=== PATIENT | female | born 1990 | race Caucasian/White ===

== ENCOUNTER 2020-04-06 08:49 | Outpatient (CLI) | payer OTHER, SELFPAY ==
--- NOTE | ~2020-04-06 | US_ITS ---
EXAMINATION: US pelvic complete w TV EXAM DATE: 04/06/2020 10:33 INDICATION: Abnormal uterine bleeding. TECHNIQUE: Pelvic transabdominal and transvaginal sonogram was performed. There are multiple graysca le and Doppler images available for interpretation. There is no prior study for comparison. FINDINGS: Uterus measures 9.8 x 4.9 x 4.9 cm, is anteverted with possible 2 cm fibroid anterior lowe r uterine segment. Endometrial stripe measures 7 mm, within normal limits. There is a nabothian cyst . There is no free pelvic fluid. Right adnexa: The ovary measures 2.8 x 2.9 x 2.2 cm and is morphologically normal. Ovarian vascular f low confirmed. Left adnexa: The ovary measures 3.4 x 1.8 x 1.9 cm and is morphologically normal. Ovarian vascular fl ow confirmed. IMPRESSION: 1. Possible small fibroid. Reviewed, dictated and finalized at location A. RIGGER IMPRESSION: 1. Possible small fibroid.
== END 2020-04-06 08:50 | disposition home or self-care (01) ==
PROVIDERS: PCP Physician Assistant; Visit Provider Obstetrics & Gynecology
DX: N93.9 Abnormal uterine and vaginal bleeding, unspecified (principal)
CPT/HCPCS: 76830; 76856

== ENCOUNTER 2020-11-03 16:42 | Emergency (ER) | payer OTHER, SELFPAY ==
--- NOTE | ~2020-11-03 | XR_ITS ---
EXAMINATION: XR hand LT min 3V DATE: 11/03/2020 16:55 INDICATION: Left hand pain. TECHNIQUE: 3 views of left hand were obtained. COMPARISON: None. FINDINGS: Bone alignment is normal. No fracture. Joint spaces are well maintained. IMPRESSION: 1. Normal left hand. Reviewed, dictated and finalized at location A. IMPRESSION: 1. Normal left hand.
[2020-11-03 16:43] VITALS: BP 148/91; PULSE 101; RESP 18; TEMP 36.8; O2SAT 100
--- NOTE | 2020-11-03 17:52 | ED.UPPEXIN ---
HPI - Extremity Injury (Upper) General Chief Complaint: Extremity Injury, Upper Stated Complaint: hand pain Time Seen by Provider: 11/03/20 17:27 Source: patient Mode of arrival: ambulatory Limitations: no limitations History of Present Illness HPI narrative: This is a 30 year old female that presents to the ER for left first finger pain present x 2 weeks. Reports no known injury. Reports the thumb feels stiff in the morning. The pain is constant and sharp. Pain started to worsen which prompted her to be seen. Denies fever, erythema, edema or warmth. Related Data Allergies Allergy/AdvReac Type Severity Reaction Status Date / Time No Known Allergies Allergy Unknown Unverified 12/23/18 20:03 No Known Allergies Allergy Uncoded 12/23/18 20:03 Review of Systems Review of Systems: CONSTITUTIONAL: Denies fever SKIN: Denies rash MUSCULOSKELETAL: Reports joint pain, and myalgia. NEUROLOGIC: Denies numbness All systems reviewed & are unremarkable except as noted in HPI and below PMFSH Past Medical History Medical History (Updated 11/03/20 @ 18:03 by Mai Cain PA-C) No active medical problems Surgical History Surgical History (Updated 11/03/20 @ 17:58 by Mai Cain PA-C) History of tubal ligation Social History Social History (Updated 11/03/20 @ 17:58 by Mai Cain PA-C) Gender identity (if verbalized by the patient): Female Exam Narrative: GENERAL: Well-appearing, well-nourished, and in no acute distress. HEAD: Normocephalic, atraumatic. EYES: EOMI. EXTREMITIES: Normal range of motion. No edema, erythema, warmth or obvious deformity. Normal radial pulses. Normal sensation SKIN: Warm, dry, no rash. NEURO: No focal deficits. Alert and oriented x3. PSYCH: Normal mood and affect Course Vital Signs Vital signs: Vital Signs Temperature 98.3 F 11/03/20 16:43 Pulse Rate 101 H 11/03/20 16:43 Respiratory Rate 18 11/03/20 16:43 Blood Pressure 148/91 H 11/03/20 16:43 Pulse Oximetry 100 11/03/20 16:43 Temperature 98.3 F 11/03/20 16:43 Pulse Rate 101 H 11/03/20 16:43 Respiratory Rate 18 11/03/20 16:43 Blood Pressure 148/91 H 11/03/20 16:43 Pulse Oximetry 100 11/03/20 16:43 MDM - Extremity Injury (Upper) MDM Narrative Medical decision making narrative: Patient presents to the emergency department for left first finger pain. No known injury or trauma. Patient is neurovascularly intact. No erythema, edema, or warmth of the hand. Left hand x-ray is normal. Patient instructed to rest, ice and take [id number] pain medication as needed. She will be given hand surgery if needed for follow-up. She was given warnings to return to the ER Imaging Data Radiologist's impression: ITS Impressions Hand X-Ray 11/03/20 16:59 IMPRESSION: 1. Normal left hand. Critical Care Time Critical Care Time Critical Care Time: No Discharge Plan Discharge Clinical Impression: Pain of left thumb Patient Disposition: Home, Self-Care Condition: Stable Instructions: Finger Sprain (ED) Additional Instructions: Return to the emergency department if you experience fever, redness and swelling of your hand, numbness, or any other symptoms that are concerning to you Rest. Elevate. Ice the area. You may wear your splint as needed for comfort. Tylenol or ibuprofen as needed If symptoms persist follow-up with hand surgery. Call to make an appointment Follow-up/Referrals: Azam,LANDY Burris [Primary Care Provider] - Garett Good MD [Physician] - 1 Week
[2020-11-03] MEDS: KETOROLAC (*BKC) 60 MG/2 ML VIAL IM (18:20)
[2020-11-03 18:36] VITALS: BP 109/76; PULSE 64; RESP 18; TEMP 36.6; O2SAT 100
== END 2020-11-03 18:36 | disposition home or self-care (01) ==
PROVIDERS: Emergency Provider Emergency Medicine; PCP Physician Assistant
DX: M79.645 Pain in left finger(s) (principal)
CPT/HCPCS: 29130; 73130; 96372; 99283; J1885

== ENCOUNTER 2022-07-21 17:12 | Emergency (ER) | payer OTHER, SELFPAY ==
[2022-07-21 17:37] VITALS: BP 123/72; PULSE 97; RESP 18; TEMP 36.9; O2SAT 100
--- NOTE | 2022-07-21 19:46 | ED.SKABFB ---
HPI - Skin/Abscess/Foreign Bdy General Chief complaint: Skin/Abscess/Foreign Body Stated complaint: abscess left cheek? Time Seen by Provider: 07/21/22 19:32 Source: patient and RN notes reviewed Mode of arrival: ambulatory Limitations: no limitations History of Present Illness HPI narrative: This is a 32 year old female who presents for evaluation of left cheek wound. PAtient noticed yesterday that she had sore to her left cheek and she noticed today surrounding swelling. She denies history of MRSA or abscess. She denies nausea, vomiting, fever or chills. Related Data Allergies Allergy/AdvReac Type Severity Reaction Status Date / Time No Known Allergies Allergy Unknown Unverified 07/21/22 19:48 No Known Allergies Allergy Unknown Other Uncoded 07/21/22 19:48 Review of Systems Constitutional: Constitutional: Denies chills, Denies fatigue and Denies fever(s) Eyes: Eyes: Denies change in vision Respiratory: Respiratory: Denies cough PMFSH Past Medical History Medical History No active medical problems Surgical History Surgical History History of tubal ligation Social History Social History (Updated 07/21/22 @ 19:48 by Kasey Elizondo MD) Smoking status: Current every day smoker Gender identity (if verbalized by the patient): Female Exam Const: General: no acute distress and alert Nutritional Appearance: well nourished Orientation/consciousness: patient oriented x3 Limitations: no limitations HENMT: Head: normal to inspection Mouth: Yes Normal oral and palatal mucosa present, Yes lip normal and Yes moist mucous membranes Teeth and gingiva: dentition normal Throat: posterior oropharynx normal and uvula midline Eyes: EOM: EOMs intact bilaterally Resp: Effort & Inspection: normal respiratory effort Skin: Other: left cheek with wound with surrounding swelling, no fluctuance, mild erythema Neuro: General: patient oriented x3 and moves all extremities Cranial nerves: Yes Nystagmus not present Speech: normal speech Gait exam (Neuro): Normal gait present Extrem: General: normal to inspection Psych: Mental Status: mental status grossly normal Affect: normal affect Attitude: cooperative Course Reevaluation(s) Reevaluation #1: I Discussed with patient treatment with antibiotics. she does not appear to have fluctuance at this time to get I and D Date: 07/21/22 Time: 19:49 Vital Signs Vital signs: Vital Signs Temperature 98.4 F 07/21/22 17:37 Pulse Rate 97 07/21/22 17:37 Respiratory Rate 18 07/21/22 17:37 Blood Pressure 123/72 07/21/22 17:37 Pulse Oximetry 100 07/21/22 17:37 Oxygen Delivery Room Air 07/21/22 17:37 Temperature 98.4 F 07/21/22 17:37 Pulse Rate 97 07/21/22 17:37 Respiratory Rate 18 07/21/22 17:37 Blood Pressure 123/72 07/21/22 17:37 Pulse Oximetry 100 07/21/22 17:37 Oxygen Delivery Room Air 07/21/22 17:37 Discharge Plan Discharge Clinical Impression: Folliculitis Patient Disposition: Home, Self-Care Condition: Stable Instructions: Antibiotic Form, Acne (ED), Folliculitis (ED) Additional Instructions: Take ibuprofen for your pain. Apply warm compresses 3 to 4 times a day. Take antibiotics as prescribed. and apply antibiotics ointment. Prescriptions: New mupirocin 2 % ointment 1 applic topical TID Qty: 22 0RF doxycycline monohydrate 100 mg capsule 100 mg PO BID Qty: 14 0RF Follow-up/Referrals: Azam,LANDY Burris [Primary Care Provider] -
[2022-07-21] MEDS: CEPHALEXIN 500 MG CAPSULE PO (19:48)
== END 2022-07-21 20:37 | disposition home or self-care (01) ==
PROVIDERS: Emergency Provider General Practice; PCP Physician Assistant
DX: L73.9 Follicular disorder, unspecified (principal); F17.200 Nicotine dependence, unspecified, uncomplicated
CPT/HCPCS: 99283; A9270

== ENCOUNTER 2022-12-09 13:42 | Emergency (ER) | payer OTHER, SELFPAY ==
--- NOTE | ~2022-12-09 | XR_ITS ---
XR foot RT min 3V 12/09/2022 14:08 INDICATION: Right foot pain PROCEDURE: 4 views right foot COMPARISON: 12/09/2022 FINDINGS: Fracture, dislocation or subluxation is not identified. Lisfranc joint intact. There are sc rews in the calcaneus. Lisfranc joint intact. The soft tissues appear within normal limits. No forei gn bodies are identified. IMPRESSION: 1: NO ACUTE BONE OR JOINT ABNORMALITY IDENTIFIED. Reviewed, dictated and finalized at location B.
--- NOTE | ~2022-12-09 | US_ITS ---
EXAMINATION: US venous doppler LE RT DATE: 12/09/2022 15:26 INDICATION: Right lower limb pain TECHNIQUE: Grayscale ultrasound images without and with compression and Doppler ultrasound images of the right lower extremity veins were obtained. COMPARISON: None. FINDINGS: The visualized portions of right common femoral vein, profunda (deep) femoral vein, femoral vein, pop liteal vein, peroneal trunk, posterior tibial veins, peroneal veins, gastrocnemius vein and greater s aphenous vein outflow are patent. IMPRESSION: 1. No deep venous thrombosis in the right lower limb. Reviewed, dictated and finalized at location A.
--- NOTE | ~2022-12-09 | XR_ITS ---
XR heel RT min 2V 12/09/2022 14:08 INDICATION: Foot pain after fall PROCEDURE: 2 views right os calcis COMPARISON: 12/09/2022 FINDINGS: Fracture, dislocation or subluxation is not identified. There are screws transfixing the po sterior margin of the calcaneus. The soft tissues appear within normal limits. No foreign bodies are identified. IMPRESSION: 1: NO ACUTE BONE OR JOINT ABNORMALITY IDENTIFIED. Reviewed, dictated and finalized at location B.
[2022-12-09 13:45] VITALS: BP 128/77; PULSE 84; RESP 16; TEMP 36.8; O2SAT 98
--- NOTE | 2022-12-09 14:44 | ED.LOWEXIN ---
HPI - Extremity Injury (Lower) General Chief Complaint: Extremity Injury, Lower Stated Complaint: sx on R heel yesterday, fell on heel today Time Seen by Provider: 12/09/22 14:24 History of Present Illness HPI Narrative: 32-year-old female presents to the emergency room for evaluation of right ankle and foot pain status post fall. Patient states yesterday she had a bone spur removed from her Achilles tendon per Dr. Ron Leslie at [facility]. Patient states earlier today her daughter was joking around with her and tripped her while she was using her crutches. Patient states increased pain to her right ankle foot. Lower extremity has been placed in a walking boot prior to arrival. Patient consulted with her orthopedist and was told to come to the closest emergency room for further evaluation. Related Data Allergies Allergy/AdvReac Type Severity Reaction Status Date / Time No Known Allergies Allergy Unknown Unverified 07/21/22 19:48 No Known Allergies Allergy Unknown Other Uncoded 07/21/22 19:48 Review of Systems Review of Systems: CONSTITUTIONAL: Denies fever, chills, or sweats. EYES: Denies visual changes, redness, or discharge. ENT: Denies rhinorrhea, congestion, sore throat, or otalgia. CARDIOVASCULAR: Denies chest pain, palpitations, or edema. RESPIRATORY: Denies cough or dyspnea. GASTROINTESTINAL: Denies abdominal pain, nausea, vomiting, or diarrhea. GENITOURINARY: Denies dysuria or hematuria. SKIN: Denies rash or itching. MUSCULOSKELETAL: Reports right foot and ankle pain NEUROLOGIC: Denies headache, numbness, dizziness, or weakness. PSYCHIATRIC: Denies anxiety or depression. PMFSH Past Medical History Medical History No active medical problems Surgical History Surgical History History of tubal ligation Social History Social History Smoking status: Current every day smoker Gender identity (if verbalized by the patient): Female Exam Narrative: GENERAL: Well-appearing, well-nourished, no physical limitations, and in no acute distress. HEAD: Normocephalic, atraumatic. EYES: Conjunctivae normal, PERRLA and EOMI. CHEST: Clear to auscultation. No respiratory distress. No wheezes rales or rhonchi. HEART: Regular rate and rhythm. No murmur heard. Normal peripheral pulses. EXTREMITIES: Rt foot: Patient's foot removed from walking boot, Iban bandage intact. Tenderness along the Achilles. No obvious bony abnormality noted. Neurovascular is intact distally. Limited range of motion due to pain. Negative Crooks test. Distal pulses present. SKIN: Warm, dry, no rash. No noted wounds NEURO: No focal deficits. Alert and oriented x3. MAEW. CN's II-XI intact bilaterally, normal gait PSYCH: Cooperative. Normal mood and affect. Course Vital Signs Vital signs: Vital Signs Temperature 36.8 C 12/09/22 13:45 Pulse Rate 84 12/09/22 13:45 Respiratory Rate 16 12/09/22 13:45 Blood Pressure 128/77 12/09/22 13:45 Pulse Oximetry 98 12/09/22 13:45 Temperature 36.8 C 12/09/22 13:45 Pulse Rate 84 12/09/22 13:45 Respiratory Rate 16 12/09/22 13:45 Blood Pressure 128/77 12/09/22 13:45 Pulse Oximetry 98 12/09/22 13:45 MDM - Extremity Injury (Lower) MDM Narrative Medical decision making narrative: 32-year-old female who recently had a bone spur removed from her right Achilles yesterday at [facility] presented to the emergency room for evaluation of foot and ankle pain radiate up into her calf muscle following a fall today. Imaging shows no acute bony abnormality. Discussed case with Dr. Leslie, the tempering machine operator who performed her procedure yesterday he requested a lower extremity ultrasound to rule out a DVT. Lower extremity ultrasound was negative for DVT. Patient had a negative Crooks test. Discussed franchesca
== END 2022-12-09 16:31 | disposition home or self-care (01) ==
PROVIDERS: Emergency Provider Nurse Practitioner Family; PCP Internal Medicine
DX: S99.911A Unspecified injury of right ankle, initial encounter (principal); S99.921A Unspecified injury of right foot, initial encounter; F17.200 Nicotine dependence, unspecified, uncomplicated; Z98.890 Other specified postprocedural states; W01.0XXA Fall on same level from slipping, tripping and stumbling without subsequent striking against object, initial encounter
CPT/HCPCS: 73630; 73650; 93971; 99284

== ENCOUNTER 2024-08-12 20:51 | Emergency (ER) | payer OTHER, SELFPAY ==
--- NOTE | ~2024-08-12 | CT_ITS ---
EXAMINATION: CT soft tissue neck w con DATE: 08/13/2024 00:13 INDICATION: Left peritonsillar abscess. TECHNIQUE: Computed tomography (CT) of the neck was performed with 75 mL Omnipaque-350 intravenous co ntrast. Automated exposure control and iterative reconstruction technique were employed. The dose-yuri gth product was 416.76 mGy-cm. COMPARISON: None FINDINGS: There is a 2.5 x 2.4 x 1.5 cm peripherally enhancing left peritonsillar abscess. This narrows the sumanth pharynx deviates the uvula to the right. Left-sided predominant likely reactive bilateral jugular ujdith in lymphadenopathy, the largest left-sided level 2 jugular chain lymph nodes measuring up to 11 mm ma ximal short axis diameter. Visualized apices of lungs are clear. Thyroid gland and the bilateral paro tid and submandibular glands are normal. Moderate cervical spondylosis with likely positional reversa l of the normal cervical lordosis. IMPRESSION: 1. 2.5 x 2.4 x 1.5 cm left peritonsillar abscess with likely reactive subarticular bilateral jugular chain lymphadenopathy. Reviewed, dictated and finalized at location A. IMPRESSION: 1. 2.5 x 2.4 x 1.5 cm left peritonsillar abscess with likely reactive subarticu lar bilateral jugular chain lymphadenopathy.
[2024-08-12 20:53] VITALS: BP 101/78; PULSE 109; RESP 20; TEMP 36.5; O2SAT 97
--- OUTSIDE RECORDS SUMMARY | 2024-08-12 20:53 | XMS_ITS | Data Portability ---
Author Organization [employer], Main Office Address [address] [place] [address] Assessment No assessment recorded. Plan of Treatment Reminders Order Date Submit Date Provider Last Modified By Organization Details Last Modified Time Details Appointments None recorded. Lab None recorded. Referral None recorded. Procedures None recorded. Surgeries None recorded. Imaging CT, neck, soft tissue, w/o contrast - PLEASE DISREGARD ORDER OF CT NECK W/ CONTRAST. DR MARTINEZ WOULD LIKE THIS DONE WITHOUT CONTRAST. 2024 [facility], [address], [place] [address], [place], [address], 16:50:30 Medication Orders clindamyci n HCl 300 mg capsule 2024 [facility] [employer] #[id number], [address] [place], [place], [id number], 16:35:25 Medrol (Benny) 4 mg tablets in a dose pack 2024 [facility] [employer] #[id number] [place], [place], [id number], 16:35:27 Patient TargetsNo targets recorded. Patient InstructionsNo instructions recorded. Reason for Referral None Reported. Problems Name Problem SNOMED Code Status Onset Date Resolution Date Notes Provider Name and Address Organization Details Recorded Time Peritonsillar abscess 63768753 Active 2024 Phyllis Coombs RN null, [employer] 16:33:03 Problem Notes None recorded. Medical Equipment None Reported. Allergies No known drug allergies Medications Name Sig Start Date Stop Date Status Note LastModified by Organization Details LastModified Time amoxicillin 500 mg capsule TAKE 1 CAPSULE BY MOUTH TWICE DAILY FOR 10 DAYS active Not Available Not Available No t Available clindamycin HCl 300 mg capsule Take 1 capsule every 6 hours by oral route. 025 active Not Available Not Available Not Avai lable Medrol (Benny) 4 mg tablets in a dose pack Take 1 dose pk by oral route. 025 active Not Available Not Available Not Avai lable ibuprofen active Not Available Not Aniyah ilable Not Available Vitals Date Recorded Body weight Body mass index (BMI) Body height Body temperature Provider Name and Address Organization Details Last Updated DateTime 08/10/2024 36949.74 g 35.1 kg/m2 157.48 cm 97.8 [degF] Phyllis Coombs RN [facility] [employer] [facility] 08/10/2024 16:20:58 Social History None recorded. Functional Status None recorded. Mental Status None recorded. Family History Nothing Reported Notes:NO ENT Medical History Condition Response NO SIGNIFICANT PAST MEDICAL HISTORY Y Gynecological HistoryNo gynecological history recorded. Obstetrics History GPAL:G 0 P 0 0 0 0 Past Encounters Encounter ID Performer Location Encounter Start Date Encounter Closed Date Diagnosis/Indication Diagnosis SNOMED-CT Code Diagnosis ICD10 Code Diagnosis Note [id number] Stoney Martinez MD [facility] [place] [address] [place] [address] 08/10/2024 16:14:24 08/11/2024 11:58:07 Peritonsillar abscess 94612192 J36 Health Concerns Section Related Observation LastModified by Organization Detai ls LastModified Time None Recorded Concern Status LastModified by Organization Details LastModified Time None Recorded Advance Directives Directive None Recorded Payers Encounter Date Sequence Insurance Name Policy Number Policy Leon Covered Member ID Leon Member ID Guarantor Name 08/10/[address] [facility] Ankita Robledo [id number] Ankita Robledo Notes Date Note Type Note Provider Name and Address Organization Details Recorded Time 08/10/2024 text/html this patient developed left tonsil swelling 4 days ago. She was given amoxicillin and a Medrol Dosepak reports that this has been minimally effective. Stoney Martinez MD [address] [place] [address], [facility] [address], [place], [address], [facility] 08/10/2024 16:35:40 OBGyn Episode No OBEpisode recorded.
--- NOTE | 2024-08-12 21:27 | PC.NURSE ---
Patient complaining of increased difficulty breathing. VS reassessed, patient appears to have more difficulty swallowing her secretions. Will speak with charge account authorizer regarding room placement
[2024-08-12 22:06] VITALS: BP 123/92; PULSE 94; O2SAT 100
--- NOTE | 2024-08-12 22:27 | ED.GENADULT ---
HPI - General Adult General Chief complaint: Unspecified <Danita Cuevas PA-C - Last Filed: 08/16/24 14:51> Stated complaint: Swollen tonsils/diff swallowing/breathing <Danita Cuevas PA-C - Last Filed: 08/16/24 14:51> Time Seen by Provider: 08/12/24 22:16 <Danita Cuevas PA-C - Last Filed: 08/16/24 14:51> History of Present Illness HPI narrative: 34-year-old female with no past medical history presents to the ED with family at bedside for for left throat pain and swelling to the past 5 days. Patient states 4 days ago she went to urgent care was prescribed a Medrol Dosepak and amoxicillin. She tested negative for strep and mono. She was given follow-up for ENT. States her symptoms were continuing to worsen despite compliance with medications so she went to ENT, Dr. Butler at [facility] on 2 days ago. Patient states the ENT was concerned for a peritonsillar abscess, attempted to drain the abscess in office without success. The patient was advised to discontinue the amoxicillin was started on clindamycin which she has been taking as prescribed. She states she was scheduled for outpatient CT scan this upcoming Wednesday. She states over the past 24 hours her symptoms have progressively worsened she has had increased swelling and pain to the left side of her throat. She reports significant pain with swallowing however she is able to swallow. Denies difficulty breathing. Reports associated nausea, no vomiting. <Danita Cuevas PA-C - Last Filed: 08/16/24 14:51> Related Data Allergies/adverse reactions: Allergies Allergy/AdvReac Type Severity Reaction Status Date / Time No Known Allergies Allergy Unknown Unverified 08/12/24 20:52 No Known Allergies Allergy Unknown Other Uncoded 08/12/24 20:52 <Danita Cuevas PA-C - Last Filed: 08/16/24 14:51> Review of Systems Review of Systems: All systems reviewed & are unremarkable except as noted in HPI and below <DANILO Gunter Last Filed: 08/16/24 14:51> PMFSH Past Medical History Medical History: Medical History No active medical problems <Danita Cuevas PA-C - Last Filed: 08/16/24 14:51> Surgical History Surgical History: Surgical History History of tubal ligation <Danita Cuevas PA-C - Last Filed: 08/16/24 14:51> Social History Social History: Social History Smoking status: Current every day smoker Gender identity (if verbalized by the patient): Female <Danita Cuevas PA-C - Last Filed: 08/16/24 14:51> Exam Narrative: GENERAL: Well-appearing, well-nourished, and in no acute distress. HEAD: Normocephalic, atraumatic. EYES: PERRLA and EOMI. ENT: Nares clear, no rhinorrhea or epistaxis. Mucous membranes moist. Enlarged left palatine tonsil with uvular deviation and overlying erythema. No exudates. No trismus. Patient is spitting his secretions into emesis bag, however is able to swallow on command. Hot potato voice appreciated on exam. She is speaking in full sentences. Airway intact NECK: Supple. CHEST: Clear to auscultation. No respiratory distress. HEART: Regular rate and rhythm. No murmur heard. Normal peripheral pulses. ABDOMEN: Soft, nontender, nondistended, normal active bowel sounds. EXTREMITIES: Normal range of motion. No edema. SKIN: Warm, dry, no rash. NEURO: No focal deficits. Alert and oriented x3 <Danita Cuevas PA-C - Last Filed: 08/16/24 14:51> Course Vital Signs Vital signs: Vital Signs Temperature 97.7 F 08/12/24 20:53 Pulse Rate 109 H 08/12/24 20:53 Respiratory Rate 20 08/12/24 20:53 Blood Pressure 101/78 08/12/24 20:53 Pulse Oximetry 97 08/12/24 20:53 Oxygen Delivery Room Air 08/12/24 20:53 Temperature 97.7 F 08/12/24 20:53 Pulse Rate 86 08/13/24 02:25 Respiratory Rate 19 08/13/24 02:25 Blood Pressure 121/83 08/13/24 01:57 Pulse Oximetry 98 08/13/24 02:25 Oxygen Delivery Room Air 08/12/24 20:53 <Danita Cuevas PA-C - Last Filed: 08/16/24 14:51> Vital Signs Temperature 97.7 F 08/12/24 20:53 Pulse Rate 109 H 08/12/24 20:53 Respiratory Rate 20 08/12/24 20:53 Blood Pressure 101/78 08/12/24 20:53 Pulse Oximetry 97 08/12/24 20:53 Oxygen Delivery Room Air 08/12/24 20:53 Temperature 97.7 F 08/12/24 20:53 Pulse Rate 86 08/13/24 02:25 Respiratory Rate 19 08/13/24 02:25 Blood Pressure 121/83 08/13/24 01:57 Pulse Oximetry 98 08/13/24 02:25 Oxygen Delivery Room Air 08/12/24 20:53 <Chencho Oliva MD - Last Filed: 08/13/24 07:38> Procedures Abscess I/D neck: Date of Incision: 08/13/24 <Chencho Oliva MD - Last Filed: 08/13/24 07:38> Time of Incision: 02:00 <Chencho Oliva MD - Last Filed: 08/13/24 07:38> Side (if applicable): left <Chencho Oliva MD - Last Filed: 08/13/24 07:38> Local Anesthetic: other anesthetic (Benzocaine spray) <Chencho Oliva MD - Last Filed: 08/13/24 07:38> Technique: needle aspiration <Chencho Oliva MD - Last Filed: 08/13/24 07:38> Amount of fluid expressed (mL): 0.5 <Chencho Oliva MD - Last Filed: 08/13/24 07:38> Irrigation: No <Chencho Oliva MD - Last Filed: 08/13/24 07:38> Packing used?: none <Chencho Oliva MD - Last Filed: 08/13/24 07:38> I&D Results: Pus and Blood <Chencho Oliva MD - Last Filed: 08/13/24 07:38> Abcess I&D Additional Comments: Minimal purulent drainage from the left-sided peritonsillar abscess. Suction successful, pain and swelling mildly improved, minor oozing of blood also stopped after suction. <Chencho Oliva MD - Last Filed: 08/13/24 07:38> Medical Decision Making MDM Narrative Medical decision making narrative: 34-year-old female presents to emergency department for worsening left throat swelling and pain despite use of steroids and antibiotics over the past 5 days. See HPI for further history. Vitals with tachycardia of 109 which has since resolved. Exam is notable for the above in concerning for left HAND TIER. She is speaking in full sentences. Airway is intact. She is spitting secretions into emesis bag, however is able to swallow on command. No trismus. CBC with leukocytosis of 15. Chemistries are unremarkable. Lactic within normal limits. CT soft tissue neck shows a 2.7 cm left peritonsillar abscess. Pt updated on results. She received 10 mg of Decadron, morphine, saline, Zofran and Unasyn. On re-evaluation she reports improvement and is tolerating secretions spontaneously. Given reported worsening symptoms despite antibiotic and steroid use, I did attempt to consult patient's ENT at [place] unfortunately without success. correctional supply supervisor at [place] confirms they do not have inpatient ENT and therefore cannot be transferred to their facility for evaluation. [facility], Latrice, who confirms this. Overall, I discussed with patient and family at bedside that patient can go home and follow up closely with her ENT as I do not feel emergent transfer to higher level of care is needed at this time as she is tolerating secretions, no trismus and no airway compromise. Pt and family became very upset and were asking for emergent drainage. Per the CT, the abscess appears to be deeper than 1 cm and bedside drainage could potentially cause more risk than benefit. I advised that she can f/u up her ENT for outpatient drainage, however patient and family became worried patient would decompensate prior to seeing her ENT. I attempted to reassure patient and family that she is on appropriate treatment with reassuring exam findings, and can return to the ED if sx worsen. They express concern for pneumonia if she were to inhale the contents of the abscess. Informed them this is unlikely to occur and that she can safely swallow vs spit abscess contents if it begins to spontaneously drain. Family and patient unhappy with this answer. They are requesting a second opinion and to see another provider. Patient's daughter voices she feels as though her mother has not been treated well and states there have been few people that have checked on them, despite me having several conversations with patient and family, as well as nursing staff frequently going in patient's room and family frequently approaching nursing station. I have informed patient and family several times that I am awaiting a call back from her ENT. I did consult Dr. Oliva throughout this process who has been providing support and recommendations. He did personally review the CT scan and agrees the abscess would be difficult to drain given location as well as the failed outpatient drainage by her ENT personally, but ultimately agrees to attempt drainage per patients request. See procedure note. Scant amount of purulence expressed. Patient's ENT, Dr. Butler, did call back and I was able to speak with him. He agrees with the treatment plan and has no other recommendations at this time. Agrees to follow up with the patient closely in clinic. Pt is requesting to have her IV removed and to be discharged. Return precautions provided. She left the department in stable condition. <Danita Cuevas PA-C - Last Filed: 08/16/24 14:51> 34-year-old female presents to emergency department for worsening left throat swelling and pain despite use of steroids and antibiotics over the past 5 days. See HPI for further history. Vitals with tachycardia of 109 which has since resolved. Exam is notable for the above in concerning for left HAND TIER. She is speaking in full sentences. Airway is intact. She is spitting secretions into emesis bag, however is able to swallow on command. No trismus. CBC with leukocytosis of 15. Chemistries are unremarkable. Lactic within normal limits. CT soft tissue neck shows a 2.7 cm left peritonsillar abscess. Pt updated on results. She received 10 mg of Decadron, morphine, saline, Zofran and Unasyn. On re-evaluation she reports improvement and is tolerating secretions. Given reported worsening symptoms despite antibiotic and steroid use, I did attempt to consult patient's ENT at [place] unfortunately without success. correctional supply supervisor at [place] confirms they do not have inpatient ENT and therefore cannot be transferred to their facility for evaluation. I discussed with patient and family at bedside that patient can go home and follow up closely with her ENT as I do not feel emergent transfer to higher level of care is needed at this time as she is tolerating secretions, no trismus and no airway compromise. Pt and family became very upset and were asking for emergent drainage. Per the CT, the abscess appears to be deeper than 1 cm and bedside drainage could potentially cause more risk than benefit. I advised that she can f/u up her ENT for outpatient drainage, however patient and family became worried patient would decompensate prior to seeing her ENT. I attempted to reassure patient and family that she is on appropriate treatment with reassuring exam findings, and can return to the ED if sx worsen. They express concern for pneumonia if she were to inhale the contents of the abscess. Informed them this is unlikely to occur and that she can safely swallow vs spit abscess contents if it begins to spontaneously drain. Family and patient unhappy with this answer. They are requesting a second opinion and to see another provider. Patient's daughter voices she feels as though her mother has not been treated well and states there have been few people that have checked on them, despite me having several conversations with patient and family, as well as nursing staff frequently going in patient's room and family frequently approaching nursing station. I have informed patient and family several times that I am awaiting a call back from her ENT. I did consult Dr. Oliva throughout this process who has been providing support and recommendations. He did personally review the CT scan and agrees the abscess would be difficult to drain given location as well as the failed outpatient drainage by her ENT personally, but ultimately agrees to attempt drainage per patients request. See procedure note. Scant amount of purulence expressed. Patient's ENT, Dr. Butler, did call back and I was able to speak with him. He agrees with the treatment plan and has no other recommendations at this time. Agrees to follow up with the patient closely in clinic. Pt is requesting to have her IV removed and to be discharged home. Return precautions provided. She was discharged in stable condition. <Chencho Oliva MD - Last Filed: 08/13/24 07:38> Medical Records Medical records reviewed: Yes I reviewed the external patient's medical records. <Chencho Oliva MD - Last Filed: 08/13/24 07:38> Vital Signs Vital Signs: Vital Signs Temperature 97.7 F 08/12/24 20:53 Pulse Rate 109 H 08/12/24 20:53 Respiratory Rate 20 08/12/24 20:53 Blood Pressure 101/78 08/12/24 20:53 Pulse Oximetry 97 08/12/24 20:53 Oxygen Delivery Room Air 08/12/24 20:53 Temperature 97.7 F 08/12/24 20:53 Pulse Rate 86 08/13/24 02:25 Respiratory Rate 19 08/13/24 02:25 Blood Pressure 121/83 08/13/24 01:57 Pulse Oximetry 98 08/13/24 02:25 Oxygen Delivery Room Air 08/12/24 20:53 <Danita Cuevas PA-C - Last Filed: 08/16/24 14:51> Vital Signs Temperature 97.7 F 08/12/24 20:53 Pulse Rate 109 H 08/12/24 20:53 Respiratory Rate 20 08/12/24 20:53 Blood Pressure 101/78 08/12/24 20:53 Pulse Oximetry 97 08/12/24 20:53 Oxygen Delivery Room Air 08/12/24 20:53 Temperature 97.7 F 08/12/24 20:53 Pulse Rate 86 08/13/24 02:25 Respiratory Rate 19 08/13/24 02:25 Blood Pressure 121/83 08/13/24 01:57 Pulse Oximetry 98 08/13/24 02:25 Oxygen Delivery Room Air 08/12/24 20:53 <Chencho Oliva MD - Last Filed: 08/13/24 07:38> Lab Data Lab results reviewed: Yes I reviewed the patient's lab results. <Chencho Oliva MD - Last Filed: 08/13/24 07:38> Result diagrams: 08/12/24 23:08 08/12/24 23:08 <DANILO Gunter Filed: 08/16/24 14:51> Labs: Lab Results 08/12/24 Range/Units 23:08 WBC 15.0 H (4.5-10.0) K/mm3 RBC 4.53 (4.2-5.4) M/mm3 Hgb 13.4 (12.0-15.0) g/dL Hct 41.3 (37.0-47.0) % MCV 91.2 (80-100) fl MCH 29.6 (26-34) pg MCHC 32.4 (32-36) g/dl RDW 12.6 (11.5-14.5) % Plt Count 303 (150-375) k/mm3 MPV 10.2 (7.4-10.4) fl Immature Gran % (Auto) 0.7 H (0-0.5) % Neut % (Auto) 86.7 H (45.5-73.1) % Lymph % (Auto) 6.8 L (18.3-44.2) % [place] % (Auto) 5.4 (2.6-8.5) % Eos % (Auto) 0.1 (0-4.4) % Baso % (Auto) 0.3 (0.2-1.2) % Lymph # (Auto) 1.02 (0.9-3.2) K/mm3 [place] # (Auto) 0.8 H (0.1-0.6) K/mm3 Eos # (Auto) 0.0 (0-0.3) K/mm3 Baso # (Auto) 0.1 (0.0-0.1) K/mm3 Abs Immat Gran (auto) 0.10 H (0.00-0.031) K/mm3 Absolute Neuts (auto) 13.0 H (1.3-6.7) K/mm3 Absolute Nucleated RBC 0.000 (0.0-0.012) K/mm3 Nucleated RBC % 0.0 (0.0-0.2) % Sodium 138 (137-145) mmol/L Potassium 4.0 (3.4-5.0) mmol/L Chloride 104 (98-107) mmol/L Carbon Dioxide 23 (22-30) mmol/L Anion Gap 11 (4-12) mmol/L BUN 11 (7-17) mg/dL Creatinine 0.60 L (0.7-1.0) mg/dL Estim Creat Clear Calc 115 ml/min Estimated GFR > 60 (59 - ) Glucose 121 H (65-110) mg/dL Lactic Acid 0.8 (0.7-2.0) mmol/L Calcium 9.2 (8.4-10.2) mg/dL Total Bilirubin 0.8 (0.2-1.3) mg/dL AST 20 (14-36) U/L ALT 14 (6-35) U/L Alkaline Phosphatase 77 (38-126) U/L Total Protein 8.0 (6.3-8.2) g/dL Albumin 4.2 (3.5-5.1) g/dL <Danita Cuevas PA-C - Last Filed: 08/16/24 14:51> Lab Results 08/12/24 Range/Units 23:08 WBC 15.0 H (4.5-10.0) K/mm3 RBC 4.53 (4.2-5.4) M/mm3 Hgb 13.4 (12.0-15.0) g/dL Hct 41.3 (37.0-47.0) % MCV 91.2 (80-100) fl MCH 29.6 (26-34) pg MCHC 32.4 (32-36) g/dl RDW 12.6 (11.5-14.5) % Plt Count 303 (150-375) k/mm3 MPV 10.2 (7.4-10.4) fl Immature Gran % (Auto) 0.7 H (0-0.5) % Neut % (Auto) 86.7 H (45.5-73.1) % Lymph % (Auto) 6.8 L (18.3-44.2) % [place] % (Auto) 5.4 (2.6-8.5) % Eos % (Auto) 0.1 (0-4.4) % Baso % (Auto) 0.3 (0.2-1.2) % Lymph # (Auto) 1.02 (0.9-3.2) K/mm3 [place] # (Auto) 0.8 H (0.1-0.6) K/mm3 Eos # (Auto) 0.0 (0-0.3) K/mm3 Baso # (Auto) 0.1 (0.0-0.1) K/mm3 Abs Immat Gran (auto) 0.10 H (0.00-0.031) K/mm3 Absolute Neuts (auto) 13.0 H (1.3-6.7) K/mm3 Absolute Nucleated RBC 0.000 (0.0-0.012) K/mm3 Nucleated RBC % 0.0 (0.0-0.2) % Sodium 138 (137-145) mmol/L Potassium 4.0 (3.4-5.0) mmol/L Chloride 104 (98-107) mmol/L Carbon Dioxide 23 (22-30) mmol/L Anion Gap 11 (4-12) mmol/L BUN 11 (7-17) mg/dL Creatinine 0.60 L (0.7-1.0) mg/dL Estim Creat Clear Calc 115 ml/min Estimated GFR > 60 (59 - ) Glucose 121 H (65-110) mg/dL Lactic Acid 0.8 (0.7-2.0) mmol/L Calcium 9.2 (8.4-10.2) mg/dL Total Bilirubin 0.8 (0.2-1.3) mg/dL AST 20 (14-36) U/L ALT 14 (6-35) U/L Alkaline Phosphatase 77 (38-126) U/L Total Protein 8.0 (6.3-8.2) g/dL Albumin 4.2 (3.5-5.1) g/dL <Chencho Oliva MD - Last Filed: 08/13/24 07:38> Imaging Data Attestation: I personally reviewed and interpreted this imaging study as follows: <Chencho Oliva MD - Last Filed: 08/13/24 07:38> My impression: Left-sided peritonsillar abscess 2.7 cm <Chencho Oliva MD - Last Filed: 08/13/24 07:38> Discharge Plan Discharge Clinical Impression: Peritonsillar abscess <Danita Cuevas PA-C - Last Filed: 08/16/24 14:51> Patient Disposition: Home <Danita Cuevas PA-C - Last Filed: 08/16/24 14:51> Condition: Stable <Danita Cuevas PA-C - Last Filed: 08/16/24 14:51> Instructions: Antibiotic Form, Peritonsillar Abscess (DC) <DANILO Gunter Last Filed: 08/16/24 14:51> Additional Instructions: Please follow-up closely with your ENT. Continue taking your clindamycin and steroids as prescribed. Take naproxen as needed for pain. Return to the emergency department if you develop difficulty breathing, drooling, fever 100.4 or greater, or other concerning symptoms. <DANILO Gunter Last Filed: 08/16/24 14:51> Patient Language: Ghanaian <Danita Cuevas PA-C - Last Filed: 08/16/24 14:51> Prescriptions: New naproxen 500 mg tablet 500 mg PO BID PRN (Reason: pain) Qty: 20 0RF No Action mupirocin 2 % ointment 1 applic topical TID Qty: 22 0RF doxycycline monohydrate 100 mg capsule 100 mg PO BID Qty: 14 0RF <Danita Cuveas PA-C - Last Filed: 08/16/24 14:51> Follow-up/Referrals: Brett,Ismael Burns MD [Non-Staff] - [facility],MD Stoney [Non-Staff] - <Danita Cuevas PA-C - Last Filed: 08/16/24 14:51>
[2024-08-12 22:30] VITALS: BP 129/77; PULSE 89; RESP 16; O2SAT 97
[2024-08-12] MEDS: MORPHINE SULFATE (*CRX) 4 MG/ML INJ IV PUSH (23:04)
[2024-08-12] MEDS: dexAMETHasone SOD PHOS INJ 10 MG/ML 1 ML VIAL IV PUSH (23:05)
[2024-08-12] MEDS: AMPICILLIN SULB 3 GM/NS 100 ML 3 GM/100 ML VIAL IVPB (23:05)
[2024-08-12] MEDS: SODIUM CHLORIDE 0.9% IV 1,000 ML 999 ML IV CONT (23:05)
[2024-08-12] MEDS: ONDANSETRON INJ 4 MG/2 ML VIAL IV PUSH (23:05)
[2024-08-12 23:18] LABS: Basophils Absolute Auto 0.1 K/mm3 (0.0-0.1); Basophils Percent Auto 0.3 % (0.2-1.2); Eosinophils Percent Auto 0.1 % (0-4.4); Hematocrit 41.3 % (37.0-47.0); Hemoglobin 13.4 g/dL (12.0-15.0); Immature Granulocyte Percent A 0.7 % (0-0.5); Lymphocytes Absolute Auto 1.02 K/mm3 (0.9-3.2); Lymphocytes Percent Auto 6.8 % (18.3-44.2); Mean Corpuscular HGB Conc 32.4 g/dl (32-36); Mean Corpuscular Hemoglobin 29.6 pg (26-34); Mean Corpuscular Volume 91.2 fl (80-100); Mean Platelet Volume 10.2 fl (7.4-10.4); Monocytes Absolute Auto 0.8 K/mm3 (0.1-0.6); Monocytes Percent Auto 5.4 % (2.6-8.5); Neutrophils Percent Auto 86.7 % (45.5-73.1); Platelet Count Result 303 k/mm3 (150-375); Red Blood Count 4.53 M/mm3 (4.2-5.4); Red Cell Distribution Width 12.6 % (11.5-14.5)
[2024-08-12 23:45] LABS: Lactic Acid Reflex 0.8 mmol/L (0.7-2.0)
[2024-08-12 23:46] LABS: Alanine Aminotransferase 14 U/L (6-35); Albumin Level 4.2 g/dL (3.5-5.1); Alkaline Phosphatase 77 U/L (38-126); Anion Gap 11 mmol/L (4-12); Aspartate Amino Transferase 20 U/L (14-36); Bilirubin,Total 0.8 mg/dL (0.2-1.3); Blood Urea Nitrogen 11 mg/dL (7-17); Calcium 9.2 mg/dL (8.4-10.2); Carbon Dioxide 23 mmol/L (22-30); Chloride 104 mmol/L (98-107); Estimated CRCL calculation 115 ml/min; Estimated Glomerular Filt Rate > 60; Glucose 121 mg/dL (65-110); Sodium 138 mmol/L (137-145)
[2024-08-13] VITALS: BP 118/71; PULSE 90; RESP 16; O2SAT 96
[2024-08-13 01:57] VITALS: BP 121/83; PULSE 89; O2SAT 97
--- NOTE | 2024-08-13 01:57 | PC.NURSE ---
Patient daughter and have approached nurses station multiple times stating that pt feels like she can not breath, is wanting blankets, is wanting covers, and requesting for tonsillar abscess to be drained. Pt daughter approached DANILO Toscano stating that something needs to be done now because her mother is more than just a sprained ankle and if we wait any longer her mothers throat is going to close completely shut and started calling Dorcas CARRASCO a liar, stating that staff is not at bedside often enough to care about her mother. Pt daughter was requesting for abscess to be drained. Pt and family members have been informed multiple times that Dorcas has been waiting for a consult from pts ENT at [place]. Pts vitals have been checked on numerous occasions and been within normal parameters during the entire ED stay. Pt not exhibiting signs of respiratory distress during assessments. EDP and ED Charge and security have been aware of entire situation.
--- NOTE | 2024-08-13 02:12 | PC.NURSE ---
Pt approached nurses station stating that pt is wanting dc papers to go home. Agustin Toscano made aware.
--- NOTE | 2024-08-13 02:14 | PC.NURSE ---
Pt approached nurses station stating that pt is wanting dc papers to go home.
[2024-08-13 02:25] VITALS: PULSE 86; RESP 19; O2SAT 98
== END 2024-08-13 02:25 | disposition home or self-care (01) ==
PROVIDERS: Emergency Provider Physician Assistant
DX: J36 Peritonsillar abscess (principal)
CPT/HCPCS: 36415; 42700; 70491; 80053; 83605; 85025; 87040; 96365; 96375; 99284; A9270; J0295; J1100; J2270; J2405; J7030; Q9967

== ENCOUNTER 2024-12-06 08:19 | Outpatient (CLI) | payer OTHER, SELFPAY ==
--- NOTE | ~2024-12-06 | XR_ITS ---
XR_[id number]_CR Indication: M50.30 - Other cervical disc degeneration, unspecified ce... Comparison: None Findings: Grade 1 retrolisthesis of C5 on C6, no fracture. Moderate loss of disc height C5-C6. Soft tissues unremarkable Impression: No acute abnormality. Reviewed, dictated and finalized at location A. Impression: No acute abnormality.
--- OUTSIDE RECORDS SUMMARY | 2024-12-06 08:30 | XMS_ITS | Clinical Summary ---
Author Organization [facility] al Address [address] [place] [address] Care Team Providers Care Lap Cutter Name Role Phone No, Physician Primary Care Provider [phone] Allergies No known active allergies Social History Tobacco Use Types Packs/Day Years Used Date Smoking Tobacco: Never Assessed Personal Safety Answer Date Recorded Have you ever been in or are you currently in a harmful physical or emotional relationship or is someone making you feel afraid or unsafe? Denies 08/15/2024 Comments Unknown Sex and Gender Information Value Date Recorded Sex Assigned at Not on file Legal Sex Female 10:18 AM CDT Gender Identity Not on file Sexual Orientation Not on file Last Filed Vital Signs Vital Sign Reading Time Taken Comments Blood Pressure 118/63 08/15/2024 5:40 PM CDT Pulse 71 08/15/2024 5:40 PM CDT Temperature 36.8 C (98.3 F) 08/15/2024 11:27 AM CDT Respiratory Rate 18 08/15/2024 5:40 PM CDT Oxygen Saturation 99% 08/15/2024 5:40 PM CDT Inhaled Oxygen Concentration - - Weight 89.8 kg (198 lb) 08/15/2024 11:27 AM CDT Height 157.5 cm (5' 2) 08/15/2024 11:27 AM CDT Body Mass Index 36.21 08/15/2024 11:27 AM CDT Plan of Treatment Health Maintenance Due Date Last Done Comments Cervical Cancer Screening 1988 Depression Screening 1988 Hepatitis C Screening 1988 DTaP/Tdap/Td Vaccine (1 - Tdap) 01/20/1999 Varicella Vaccines (1 of 2 - 13+ 2-dose series) 01/20/2001 Hepatitis B Screening 01/20/2006 Regular Well Visit/Exam 18-64 01/20/2006 HPV Vaccines (1 - 3-dose SCD M series) 01/20/2015 Influenza Vaccine (#1) 2024 Pneumococcal vaccine <65 Aged Out No longer eligible based on patient's age to complete this topic Insurance 2015 [place] [id number] Address: [place] [address] [facility] Address: [place] [address] Care Teams Lap Cutter Relationship Specialty Start Date End Date No, Physician PCP - General 08/15/24
[2024-12-06 09:04] LABS: Hematocrit 39.3 % (37.0-47.0); Hemoglobin 12.9 g/dL (12.0-15.0); Immature Granulocyte Percent A 0.5 % (0-0.5); Lymphocytes Absolute Auto 1.70 K/mm3 (0.9-3.2); Mean Corpuscular HGB Conc 32.8 g/dl (32-36); Mean Corpuscular Hemoglobin 29.9 pg (26-34); Mean Corpuscular Volume 91.2 fl (80-100); Nucleated Red Blood Cells Absolute Auto 0.000 K/mm3 (0.0-0.012); Nucleated Red Blood Cells Perc 0.0 % (0.0-0.2); Platelet Count Result 242 k/mm3 (150-375); Red Blood Count 4.31 M/mm3 (4.2-5.4); White Blood Count 8.6 K/mm3 (4.5-10.0)
[2024-12-06 09:40] LABS: Alanine Aminotransferase 16 U/L (6-35); Albumin Level 4.2 g/dL (3.5-5.1); Alkaline Phosphatase 68 U/L (38-126); Anion Gap 9 mmol/L (4-12); Aspartate Amino Transferase 19 U/L (14-36); Bilirubin,Total 0.5 mg/dL (0.2-1.3); Blood Urea Nitrogen 12 mg/dL (7-17); Calcium 8.7 mg/dL (8.4-10.2); Carbon Dioxide 21 mmol/L (22-30); Chloride 108 mmol/L (98-107); Cholesterol 132 mg/dL (0-200); Estimated Glomerular Filt Rate > 60; Glucose 84 mg/dL (65-110); HDL Direct 42 mg/dL; Potassium 4.3 mmol/L (3.4-5.0); Sodium 138 mmol/L (137-145); Total Protein 7.5 g/dL (6.3-8.2); Triglycerides 78 mg/dL (<150)
[2024-12-06 10:16] LABS: Thyroid Stimulating Hormone 1.420 uIU/mL (0.465-4.680)
== END 2024-12-06 08:20 | disposition home or self-care (01) ==
LOC: ANHLAB 08:19
PROVIDERS: PCP Emergency Medicine; Visit Provider Emergency Medicine
DX: E78.5 Hyperlipidemia, unspecified (principal); E55.9 Vitamin D deficiency, unspecified; R53.83 Other fatigue; I10 Essential (primary) hypertension; M50.30 Other cervical disc degeneration, unspecified cervical region; M54.12 Radiculopathy, cervical region
CPT/HCPCS: 36415; 72040; 80053; 80061; 82306; 84443; 85025

== ENCOUNTER 2024-12-13 07:05 | Outpatient (CLI) | payer OTHER, SELFPAY ==
--- NOTE | ~2024-12-13 | MR_ITS ---
EXAMINATION: MR cervical spine wo con DATE: 12/13/2024 07:34 INDICATION: Other cervical disc degeneration. Neck pain. Bilateral arm pain and numbness. TECHNIQUE: Magnetic resonance imaging (MRI) of the cervical spine was performed without intravenous contrast. COMPARISON: None FINDINGS: There is hypolordosis of cervical spine. There is 2 mm retrolisthesis of C5 on C6. Vertebral body heights are normal. There is mildly decreased disc height at C4-C5 and moderately decreased disc height at C5-C6. There is increased T2-weighted signal intensity in the spinal cord at C5-C6, consistent with myelomalacia. The following disc levels are specifically discussed: C2-C3: The disc does not extend beyond the endplate margin. There is no uncovertebral joint osteoarthritis. There is mild bilateral facet joint osteoarthritis. There is no neural foraminal stenosis. There is no central canal stenosis. C3-C4: There is a right central extrusion. There is mild bilateral uncovertebral joint osteoarthritis. There is mild bilateral facet joint osteoarthritis. There is mild right neural foraminal stenosis. There is mild central canal stenosis. C4-C5: There is a right central extrusion. There is moderate bilateral uncovertebral joint osteoarthritis. There is mild bilateral facet joint osteoarthritis. There is mild bilateral neural foraminal stenosis. There is mild central canal stenosis. C5-C6: There is a left central extrusion. There is severe bilateral uncovertebral joint osteoarthritis. There is mild bilateral facet joint osteoarthritis. There is moderate right and mild left neural foraminal stenosis. There is severe central canal stenosis with ventral and dorsal indentation of the spinal cord. C6-C7: The disc does not extend beyond the endplate margin. There is mild right and moderate left uncovertebral joint osteoarthritis. There is severe right and mild left facet joint osteoarthritis. There is mild bilateral neural foraminal stenosis. There is no central canal stenosis. C7-T1: The disc does not extend beyond the endplate margin. There is no uncovertebral joint osteoarthritis. There is mild bilateral facet joint osteoarthritis. There is no neural foraminal stenosis. There is no central canal stenosis. IMPRESSION: 1. Severe spondylosis at C5-C6 with myelomalacia. Reviewed, dictated and finalized at location E.
== END 2024-12-13 07:06 | disposition home or self-care (01) ==
LOC: MICIMG 07:05
PROVIDERS: PCP Emergency Medicine; Visit Provider Emergency Medicine
DX: M50.30 Other cervical disc degeneration, unspecified cervical region (principal); M47.22 Other spondylosis with radiculopathy, cervical region
CPT/HCPCS: 72141

== ENCOUNTER 2025-01-04 07:52 | Outpatient (CLI) | payer OTHER, SELFPAY ==
--- NOTE | ~2025-01-04 | XR_ITS ---
XR cervical spine 4-5V Indication: M50.30 - Other cervical disc degeneration, unspecified ce... Comparison: None Findings: There is grade 1 retrolisthesis of C5 on C6, no fracture,, no subluxation with flexion-extension. Moderate loss of disc height C5-6 and C6-7. Soft tissues unremarkable Impression: No acute abnormality. Reviewed, dictated and finalized at location P. Impression: No acute abnormality.
--- OUTSIDE RECORDS SUMMARY | 2025-01-04 07:55 | XMS_ITS | Clinical Summary ---
Author Organization [facility] al Address [address] [place] [address] Care Team Providers Care [employer] Consultant Name Role Phone No, Physician Primary Care Provider [phone] Allergies No known active allergies Social History [...] age to complete this topic Insurance [address] [id number] CHOICE PLUS [facility] CHOICE PLUS Care Teams [employer] Consultant Relationship Specialty Start Date End Date No, Physician PCP - General 08/15/24
== END 2025-01-04 07:53 | disposition home or self-care (01) ==
PROVIDERS: PCP Emergency Medicine; Visit Provider Nurse Practitioner Adult Health
DX: M50.30 Other cervical disc degeneration, unspecified cervical region (principal); M54.12 Radiculopathy, cervical region
CPT/HCPCS: 72050

== ENCOUNTER 2025-01-08 08:06 | Outpatient (CLI) | payer OTHER, SELFPAY ==
--- NOTE | ~2025-01-08 | XR_ITS ---
EXAMINATION: XR chest 2V, 01/08/2025 9:10 CDT HISTORY: G95.9 - Disease of spinal cord, unspecified COMPARISON: No comparisons available. Technique: 2 views obtained. Findings: The lungs are clear, no effusion. No pneumothorax. Heart is normal size. Mediastinal and hilar contours are within normal limits. Bony thorax no acute abnormality. Impression: No acute cardiopulmonary abnormality. Reviewed, dictated and finalized at location P. Impression: No acute cardiopulmonary abnormality.
--- OUTSIDE RECORDS SUMMARY | 2025-01-08 08:18 | XMS_ITS | Clinical Summary ---
Author Organization [facility] Address [address] [place] [id number] Care Team Providers Care Ice Maker Name Role Phone None, Provider MD Primary Care Provider Unavaila ble Allergies No known active allergies Medications ibuprofen (MOTRIN) 800 MG tablet Take 1 tablet (800 mg total) by mouth every 6 (six) hours as needed for Pain. Active HYDROcodone-raúl taminophen (NORCO) 5-325 MG tabletIndicatio ns:Acute Pain < 7 Day Supply Take 1 tablet by mouth every 6 (six) hours as needed for Pain. Indications : Acute Pain < 7 Day Supply 20 tablet 12/08/2022 Active ibuprofen (MOTRIN) 800 MG tablet Take 1 tablet (800 mg total) by mouth every 8 (eight) hours as needed for Pain. 30 tablet 12/08/2022 Active meloxicam (MOBIC) 15 MG tablet Take 1 tablet (15 mg total) by mouth daily for 14 days. 14 tablet 11/29/2024 Active Problems No known active problems Encounters Date Type Department Care Team Description 11/28/2024 8:58 PM CDT - 11/29/2024 1:33 AM CDT Emergency [facility] [place] [address] Venkat Wasserman MD,PHD Numbness Discharge Disposition: Home or Self Care (Routine Discharge) 11/28/2024 Travel from Last 3 Months Family History Medical History Relation Comments No Known Problems Father No Known Problems Mother Relation Status Comments Father Alive Mother Alive Social History Tobacco Use Types Packs/Day Years Used Date Smoking Tobacco: Every Day Cigarettes Smokeless Tobacco: Never Tobacco Cessation:Ready to Q uit: Not Asked; Counseling Given: Not Answered Alcohol Use Standard Drinks/Week Comments Not Currently 0 (1 standard drink = 0.6 oz pur e alcohol) less than one a month Comments No Sex and Gender Information Value Date Recorded Sex Assigned at Female 11/28/2024 7:31 PM CDT Legal Sex Female 10:52 AM CDT Gender Identity Not on file Sexual Orientation Not on file Last Filed Vital Signs Vital Sign Reading Time Taken Comments Blood Pressure 104/67 11/29/2024 1:33 AM CDT Pulse 79 11/29/2024 1:33 AM CDT Temperature 38.1 C (100.5 F) 11/28/2024 7:17 PM CDT Respiratory Rate 18 11/29/2024 1:33 AM CDT Oxygen Saturation 98% 11/29/2024 1:33 AM CDT Inhaled Oxygen Concentration - - Weight 83.9 kg (185 lb) 11/28/2024 7:17 PM CDT Height 157.5 cm (5' 2) 11/28/2024 7:17 PM CDT Body Mass Index 33.84 11/28/2024 7:17 PM CDT Plan of Treatment Health Maintenance Due Date Last Done Comments Cervical Cancer Screening Pa p Smear (Age 30 to 64) Every 3 Years 1988 Annual Physical 01/20/1991 Hepatitis C 01/20/2006 DTaP, Tdap and Td Vaccines ( 1 - Tdap) 01/20/2007 Hepatitis B Vaccines (1 of 3 - 19+ 3-dose series) 01/20/2007 Pneumococcal Vaccine: Pediat rics (0 to 5 Years) and At-Risk Patients (6 to 49 Years) (1 of 2 - PCV) 01/20/2007 Cervical Cancer Screening Pa p with HPV Testing (Age 30 to 64) Every 5 Years 01/20/2018 Cervical Cancer Screening with HPV 01/20/2018 HPV Vaccines (2 - 3-dose SCD M series) 07/25/2018 06/27/2018 COVID-19 Vaccine (2024-2 6 season) 2024 Influenza Adult (#1) 2024 Hepatitis A Vaccines Aged Out No long er eligible based on patient's age to complete this topic Meningococcal B Vaccine Aged Out No l onger eligible based on patient's age to complete this topic Meningococcal Vaccine Aged Out No jarvis narinder eligible based on patient's age to complete this topic RSV Immunizations Under 20 Months Aged Out No longer eligible based on patient's age to complete this topic Medical Devices Implanted Type Area Business Unit Controller Device Identifier Shelf Expiration Date Model / Serial / Lot Aydlett Ti Suture 3.5mm #0 [facility] - [id number] Implanted:Qty : 2 on 12/08/2022 by Ron Leslie DPM at [facility] [place] Aydlett Right: Heel [employer] [id number] 04/29/2027 [id number] / / [id number] Procedures Procedure Name Priority Date/Time Associated Diagnosis Comments POCT URINE (BACK OFFICE) STAT 11/28/2024 9:40 PM CDT CORONAVIRUS (COVID 19) STAT 9:26 PM CDT MAGNESIUM STAT 11/28/2024 9:26 PM CDT COMPREHENSIVE METABOLIC PANEL STAT 11/28/2024 9:26 PM CDT CBC W/DIFF AUTOMATED STAT 11/28/2024 9:[address] CERV SPINE WO CON STAT 11/28/2024 7:50 PM CDT from Last 3 Months Results * POCT urine (11/28/2024 9:40 PM CDT) URINE HCG TEST NEGATIVE Internal Control: VALID 11/28/2024 9:40 PM CDT us Ata Smith NP POINT OF CARE TEST ORDERABLES Final Result * CORONAVIRUS (COVID 19) (11/28/2024 9:26 PM CDT) CORONAVIRUS SARS COV 2 RNA NEGATIVE NEGATIVE 11/28/2024 10:30 PM CDT [facility] Comment: NEGATIVE RESULTS DO NOT RULE OUT COVID 19 AND SHOULD NOT BE USED THE SOLE BASIS FOR TREATMENT OR PATIENT MANAGEMENT DECISIONS, INCLUDING INFECTION CONTROL DECISIONS. NEGATIVE RESULTS SHOULD BE CONSIDERED IN THE CONTEXT OF A PATIENT'S RECENT EXPOSURES, HISTORY AND THE PRESENCE OF CLINICAL SIGNS AND SYMPTOMS CONSISTENT WITH COVID 19. THE ID NOW COVID-19 2.0 TEST HAS BEEN AUTHORIZED BY THE FDA UNDER EAU FOR USE BY AUTHORIZED LABORATORIES. PERFORMED BY NUCLEIC ACID AMPLIFICATION FOR MOLECULAR QUALITATIVE DETECTION OF SARS-COV-2. SPECIMEN TYPE NASAL 11/28/2024 9:26 PM CDT [facility] NASAL STRUCTURE / Unknown 11/28/2024 9:26 PM CDT us Ata Smith NP MICROBIOLOGY - GENERAL ORDERAB LES Final Result [facility] [address] [place] [address], * (ABNORMAL) COMPREHENSIVE METABOLIC PANEL (11/28/2024 9:26 PM CDT) GLUCOSE 85 70 - 99 MG/DL 11/28/2024 10:23 PM CDT [facility] BUN 10 7 - 18 MG/DL 11/28/2024 10:23 PM CDT [facility] CREATININE S/P/B 0.67 0.55 - 1.02 MG/DL 11/28/2024 10:23 PM CDT [facility] SODIUM S/P/B 136 136 - 145 MMOL/L 11/28/2024 10:23 PM CDT [facility] POTASSIUM S/P/B 4.8 3.5 - 5.1 MMOL/L 11/28/2024 10:23 PM CDT [facility] CHLORIDE S/P/B 110 97 - 115 MMOL/L 11/28/2024 10:23 PM CDT [facility] CO2 22.2 21 - 32 MMOL/L 11/28/2024 10:23 PM T [facility] CALCIUM S/P/B 8.9 8.5 - 10.1 MG/DL 11/28/2024 10:23 PM T [facility] BILIRUBIN TOTAL S/P/B 0.3 0.2 - 1.2 MG/DL 11/28/2024 10:23 PM T [facility] Comment: THIS ASSAY IS NOT RECOMMENDED FOR PATIENTS UNDERGOING TREATMENT WITH ELTROMBOPAG DUE TO THE POTENTIAL FOR FALSELY ELEVATED RESULTS. TOTAL PROTEIN S/P/B 7.6 6.4 - 8.2 G/DL 11/28/2024 10:23 PM T [facility] ALBUMIN S/P/B 3.7 3.4 - 5.0 G/DL 11/28/2024 10:23 PM [facility] AST 22 15 - 37 U/L 11/28/2024 10:23 PM T [facility] ALT 19 14 - 55 U/L 11/28/2024 10:23 PM T [facility] ALKALINE PHOSPHATASE S/P/B 83 50 - 136 U/L 11/28/2024 10:23 PM [facility] ANION GAP 3.8 2 - 10 MMOL/L 11/28/2024 10:23 PM T [facility] BUN CREATININE RATIO 14.9 6 - 26 11/28/2024 10:23 PM [facility] A/G RATIO 0.9(L) 1.0 - 2.0 RATIO 11/28/2024 10:23 PM [facility] GFR ESTIMATE >90 >90 ML/MIN/1.7 3 M2 11/28/2024 10:23 PM T [facility] Comment: NOTE: eGFR is not calculated for patients <18 years of age or gender unknown. This is an estimated GFR calculation using the new CKD EPI creatinine equation without race and so does not require a correction factor for race. This estimated GFR should not be used for calculating drug doses. 11/28/2024 9:26 PM CDT us Ata Daniel Smith NP LABORATORY Final Result [facility] [address] [place] [address], * (ABNORMAL) CBC W/DIFF AUTOMATED (11/28/2024 9:26 PM CDT) WBC 11.59(H) 4.5 - 11.0 x10'3/uL 11/28/2024 9:55 PM CDT [facility] RBC 4.80 4.20 - 5.40 x10'6/uL 11/28/2024 9:55 PM CDT [facility] HGB 14.3 12.0 - 16.0 G/DL 11/28/2024 9:55 PM CDT [facility] HCT 44.5 38.0 - 48.0 % 11/28/2024 9:55 PM CDT [facility] MCV 92.7 81.0 - 99.0 FL 11/28/2024 9:55 PM CDT [facility] MCH 29.8 27.0 - 31.0 PG 11/28/2024 9:55 PM CDT [facility] MCHC 32.1 32.0 - 36.0 G/DL 11/28/2024 9:55 PM CDT [facility] RDW 12.5 11.5 - 14.5 % 11/28/2024 9:55 PM CDT [facility] PLT 292 130 - 400 x10'3/uL 11/28/2024 9:55 PM CDT [facility] MPV 11.1 9.3 - 12.2 FL 11/28/2024 9:55 PM CDT [facility] DIFFERENTIAL TYPE AUTOMATED DIFFERENTIAL 11/28/2024 9:55 PM CDT [facility] NEUTROPHILS % 61.0 % 11/28/2024 9:55 PM CDT [facility] LYMPHOCYTES % 25.4 % 11/28/2024 9:55 PM CDT [facility] MONOCYTES % 5.1 % 11/28/2024 9:55 PM CDT [facility] EOSINOPHILS 7.1 % 11/28/2024 9:55 PM CDT [facility] BASOPHILS 0.8 % 11/28/2024 9:55 PM CDT [facility] IMMATURE GRANS % 0.6 % 11/29/19 9:55 PM CDT [facility] ABS. NEUTROPHILS 7.08 1.80 - 7.70 x10'3/uL 11/28/2024 9:55 PM CDT [facility] ABS. LYMPHOCYTES 2.94 1.00 - 4.80 x10'3/uL 11/28/2024 9:55 PM CDT [facility] ABS. MONOCYTES 0.59 0.24 - 0.86 x10'3/uL 11/28/2024 9:55 PM CDT [facility] ABS. EOSINOPHILS 0.82(H) 0.04 - 0.36 x10'3/uL 11/28/2024 9:55 PM CDT [facility] ABS. BASOPHILS 0.09(H) 0.01 - 0.08 x10'3/uL 11/28/2024 9:55 PM CDT [facility] ABS. IMMATURE GRANULOCYTES 0.07 0.00 - 0.49 x10'3/uL 11/28/2024 9:55 PM CDT [facility] 11/28/2024 9:26 PM CDT us Ata Smith [employer] [facility] LABORAT[facility] Final Result [facility] [address] [place] [address], [place] [phone] * MAGNESIUM (11/28/2024 9:26 PM CDT) MAGNESIUM 1.9 1.8 - 2.4 MG/DL 11/28/2024 10:23 PM CDT [facility] 11/28/2024 9:26 PM CDT Ata Smith [employer] [facility] Final Result Performing Organization Address [facility] de Phone Number [facility] [address] [place] [address], [place] [phone] * CT CERV SPINE WO CON (11/28/2024 7:50 PM CDT) Anatomical Region Laterality Modality Spine Computed Tomogra phy 11/28/2024 8:36 PM CDT Impressions 11/28/2024 8:40 PM CDT IMPRESSION: 1. Disc herniation and uncovertebral osteophytes causing moderate to severe canal stenosis at C5-6. Recommend neurosurgical evaluation, urgency based on patient's symptoms. Consideration for MRI to evaluate for cord edema. 2. Loss of the normal cervical lordosis, which can be seen in the setting of muscle spasm. Referred By: Interpreted By: Jessica Boo DO, 11/28/2024 8:36 PM Narrative 11/28/2024 8:40 PM CDT [address] [address] EXAMINATION: CT Cervical Spine REPORT DATE: 11/28/2024 8:36 PM INDICATION: neck pain, numbness and tingling in bilateral fingers COMPARISON(S): None. TECHNIQUE: CT acquisition of the cervical spine with multiplanar reformations. Individualized dose optimization techniques were used for this CT. Contrast: None. FINDINGS: SPINE Craniocervical Junction:Normal. Vertebrae: Straightening of cervical lordosis in the position imaged, otherwise anatomic alignment. Vertebral body heights are normal. No acute fracture. Discs: Loss of disc height C5-6 with posterior uncovertebral osteophytes and disc material causing moderate to severe canal stenosis and moderate right osseous foraminal narrowing. OTHER Head: Imaged intracranial structures are unremarkable. Imaged skull base is normal. Imaged paranasal sinuses and mastoid air cells are clear. Soft tissues: Paraspinal soft tissues are normal. Mildly prominent bilateral cervical lymph nodes. Upper chest:Imaged lung apices and soft tissues of the upper mediastinum are normal. Procedure Note Jessica Boo, - 11/28/[address] [address] EXAMINATION: CT Cervical Spine REPORT DATE: 11/28/2024 8:36 PM INDICATION: neck pain, numbness and tingling in bilateral fingers COMPARISON(S): None. TECHNIQUE: CT acquisition of the cervical spine with multiplanarreformations. Individualized dose optimization techniques were used forthis CT. Contrast: None. FINDINGS: SPINE Craniocervical Junction:Normal. Vertebrae: Straightening of cervical lordosis in the position imaged,otherwise anatomic alignment. Vertebral body heights are normal. No acutefracture. Discs: Loss of disc height C5-6 with posterior uncovertebral osteophytesand disc material causing moderate to severe canal stenosis and moderateright osseous foraminal narrowing. OTHER Head: Imaged intracranial structures are unremarkable. Imaged skull baseis normal. Imaged paranasal sinuses and mastoid air cells are clear. Soft tissues: Paraspinal soft tissues are normal. Mildly prominentbilateral cervical lymph nodes. Upper chest:Imaged lung apices and soft tissues of the upper mediastinumare normal. IMPRESSION: 1. Disc herniation and uncovertebral osteophytes causing moderate tosevere canal stenosis at C5-6. Recommend neurosurgical evaluation,urgency based on patient's symptoms. Consideration for MRI to evaluatefor cord edema. 2. Loss of the normal cervical lordosis, which can be seen in the settingof muscle spasm. Referred By: Interpreted By: Jessica Boo DO, 11/28/2024 8:36 PM us Ata Smith MOLD [employer] CT Final Result from Last 3 Months Insurance [facility] Advance Directives * Full Code (Latest Code Status on File) Date Activated Date Inactivated Comments 12/08/2022 10:53 AM 12/08/2022 2:49 PM Care Teams Ice Maker Relationship Specialty Start Date End Date None, Provider, PCP - General UNKNOWN PHYSICIAN SPECIALTY 11/28/24
--- OUTSIDE RECORDS SUMMARY | 2025-01-08 08:18 | XMS_ITS | Clinical Summary ---
Author Organization [facility] al Address [address] [place] [address] Care Team Providers Care Loss Control Representative Name Role Phone No, Physician Primary Care Provider [phone] Allergies No known active allergies Social History [...] age to complete this topic Insurance [address] [id number] CHOICE PLUS [facility] CHOICE PLUS Care Teams Loss Control Representative Relationship Specialty Start Date End Date No, Physician PCP - General 08/15/24
--- NOTE | 2025-01-08 08:43 | ECG_ITS ---
Test Date: 2025-01-08 09:02:17 Measurements Intervals [place] Rate: 82 P: 42 MI: 139 QRS: 58 QRSD: 81 T: 47 QT: 349 QTc: 410 Interpretive Statements SINUS RHYTHM BASELINE ARTIFACT- I, II, III, AVR, AVL, AVF NORMAL ECG No previous ECG available for comparison Electronically Signed On 01-08-2025 09:48:55 CDT by Adán Parekh D.O.
[2025-01-08 09:33] LABS: Add Urine Microscopic? YES; Appearance Urine Cloudy (Clear); Glucose Urine UA Negative (Negative); Leukocyte Esterase Ur Trace LEU/UL (Negative); Nitrate Urine Negative (Negative); Non Pathogenic Casts 0-2; Specific Grav Ur 1.024 (1.001-1.035)
[2025-01-08 09:38] LABS: INR 1.1; Partial Thromboplastin Time 30.7 Seconds (22.3-36.8); Prothrombin Time 13.7 Seconds (11.1-14.7)
== END 2025-01-08 08:07 | disposition home or self-care (01) ==
LOC: ANHSURGERY 08:09
PROVIDERS: PCP Emergency Medicine; Visit Provider Neurological Surgery
DX: G95.9 Disease of spinal cord, unspecified (principal); Z01.818 Encounter for other preprocedural examination
CPT/HCPCS: 36415; 71046; 81001; 85610; 85730; 93005

== ENCOUNTER 2025-01-10 00:55 | Day surgery (SDC) | payer OTHER, SELFPAY ==
--- NOTE | 2025-01-08 08:09 | PC.NURSE ---
[facility] has started construction of its new state of the art ER which will open Spring 2026. With this, we anticipate parking may be a challenge for some our surgical patients and families. Parking spaces are limited but are available for all Surgical, obstetrics, and ER patients sharing this lot. If you arrive and find you are having a hard time finding a parking space, please note that we understand the challenges, please drive around the hospital and park near Hospital Entrance 1. When you enter this entrance, you can ask a volunteer to direct or take you back to the surgical waiting area to check in. We appreciate everyone?s understanding of these expected challenges while we build for your future. Report to the Outpatient Waiting Room, entrance under the green pavilion located off [address], at time __8:30 am on date _01/10/25 . Planned Procedure Time: ___10:30 am .? Time changes happen often and if your time is changed the preop area will call you the afternoon before. - You and your visitor will be asked to self-screen and do not enter if you have any COVID symptoms. Please call surgeon if you need to reschedule. - A mask is optional within the hospital at this time. Patients may have clear liquids (water, carbonated beverages, clear teas, apple juice) until 3 hours prior to surgery (7:30 am) with a maximum of 20 ounces. - No food from midnight until time of surgery and no smoking, or chewing tobacco (or any form of nicotine). No chewing gum, candy or mints. Take only the following medications with a SIP of water on the morning of surgery: NONE DO NOT STOP ANY OF YOUR OTHER PRESCRIPTION MEDICATIONS PRIOR TO SURGERY EXCEPT THE FOLLOWING Hold all vitamins and supplements for 3 days per anesthesiologist. Medications to discontinue per physician NONE Please no make-up, nail samoan, hairspray, perfume, deodorant, or body powder the day of surgery.? No jewelry (including any body piercings) or valuables the day of surgery, leave them at home.? Please take a shower or bath the night before, or the morning of, surgery with an antibacterial soap.? Wear comfortable, loose fitting clothing.? Children are encouraged to wear pajamas. - Jewelry must be removed prior to entering the operating room.? Rings and piercings that are not removed may be cut off. - The hospital will not accept responsibility for valuables.? - Please leave all valuables, including medications, at home the day of surgery. If you are going home after surgery, a licensed long haul truck driver must drive you home.? - NO public transportation without another adult if you receive anesthesia. - We recommend that an adult stay with you for 24 hours following discharge. - We also recommend that you do not drive, make important decision, drink alcoholic beverages, or take any drugs that were not prescribed by your health care provider for at least 24 hours after your discharge time. For Pediatric surgeries, we recommend two adults accompany the child home. Follow any additional instructions given to you from your surgeon. verbal and written instructions given to PATIENT____and asked if any additional questions and then verbalized understanding. Patient advised to call surgeon office or pre surgery nurse liaison [phone] if any additional questions.
[2025-01-08 08:38] VITALS: BP 115/66; PULSE 83; RESP 18; TEMP 36.7; O2SAT 99; BMI 33.5
[2025-01-10] VITALS (11 sets, daily range): BP systolic 101–130; BP diastolic 57–88; PULSE 67–81; RESP 12–16; TEMP 36.6–36.7; O2SAT 98–100; BMI 33.6
--- NOTE | ~2025-01-10 | XR_ITS ---
EXAMINATION: XR fluoroscopy no charge DATE: 01/10/2025 12:25 INDICATION: C5-C6 cervical disc arthroplasty TECHNIQUE: 2 images of the cervical spine are obtained in AP and lateral projections during pain management procedure performed by Dr. Styles. Radiologist was not present for the imaging or procedure. The amount of fluoroscopy time used during this procedure was 0.2 minutes. Total DAP was mGycm ^2. 0.123 Gycm^2. COMPARISON: None. FINDINGS: Images demonstrate a C5-C6 discectomy and prosthetic disc placement in expected position. Endotracheal tube in expected position extending through the cervical trachea. IMPRESSION: 1. Fluoroscopy utilized during C5-C6 disc arthroplasty. See procedure note for further detail. Reviewed, dictated and finalized at location A.
--- OUTSIDE RECORDS SUMMARY | 2025-01-10 00:58 | XMS_ITS | Data Portability ---
Author Organization LATIA KRISTIANYumi Address [address] [place] [address] Assessment No assessment recorded. Plan of Treatment Reminders Order Date Submit Date Provider Last Modified By Organization Details Last Modified Time Details Appointments None recorded . Lab CBC w/ auto diff 2020 [facility], [address], [place], [address], 08:19:48 prolacti n, serum 2020 [facility], [address], [place], [address], 08:19:53 estradio l, serum 2020 [facility], [address], [place], [address], 08:19:54 lh + FSH, serum 2020 [facility] (Centralized Electronic Ordering - All Locations), Patient Can Go To The Location Of Their Choice, 08:19:50 dhea-sul fate, serum 2020 [facility] (Centralized Electronic Ordering - All Locations), Patient Can Go To The Location Of Their Choice, 08:19:51 testoste rogelio, total, serum 2020 [facility] (Centralized Electronic Ordering - All Locations), Patient Can Go To The Location Of Their Choice, 08:19:52 CMP, serum or plasma 2020 [place] [facility] (Centralized Electronic Ordering - All Locations), Patient Can Go To The Location Of Their Choice, 08:19:49 lipid panel, serum 2020 [place] [facility] (Centralized Electronic Ordering - All Locations), Patient Can Go To The Location Of Their Choice, 08:19:49 TSH, ultra-se nsitive, serum 2020 [facility], [address], [address], [place], [address], 08:19:53 HbA1c (hemoglo bin A1c), blood 2020 [facility], [address], [address], [address], 08:19:51 progeste rogelio, serum 2020 [facility], [address], [place], [address], 08:19:55 Referral None recorded . Procedures None recorded . Surgeries None recorded . Imaging US, pelvis, transabd ominal + transvag inal 2020 [facility] ([facility]), [address], [place], [address], 18:26:26 Medication Orders Zithroma x Z-Benny 250 mg tablet 2021 [id number], [address], [place], [place], [id number], 3 16:14:12 lidocain e 4 % topical cream 2021 [id number], [address], [place], [place], [id number], 11:42:41 Pennsaid 2 % topical solution in packet 2021 [facility] #[id number], [address], [place], [place], [id number], 11:42:40 Oriahnn 300-1-0. 5 mg(AM)/3 00 mg(PM) capsules 2020 [id number], [address], [place], [place], [id number], 11:13:42 ibuprofe n 800 mg tablet 2020 [facility] #43121, [address], [place], [place], [id number], 14:40:39 Patient TargetsNo targets recorded. Patient Instructions Encounter Date Encounter Id Patient Instructions Last Modified By Organization Details Last Modified Time 03/28/2020 [id number] genital herpes: care instructions mwasserman Not available 03/28/2020 15:33:22 When You Want to Lose Weight: Care Instructions mwasserman Not available 03/28/2020 15:33:04 04/30/2020 [id number] uterine fibroids: care instructions mwasserman Not available 04/30/2020 14:59:52 06/20/2020 [id number] uterine fibroids: care instructions mwasserman Not available 06/20/2020 14:30:42 12/11/2021 [id number] upper respiratory infection (cold): care instructions jhsieh Not available 12/11/2021 11:42:33 11/19/2022 [id number] A healthy lifestyle: care instructions jhsieh Not available 11/19/2022 17:29:04 medical clearance* [email or web address] Not available 11/20/2022 15:28:08 Reason for Referral None Reported. Results Created Date Observation Date Name Description Value Unit Range Abnormal Flag Note LastModifiedBy Organization Detail LastModifiedTime 03/29/1903/30/2020 CBC w/ auto diff WBC 9.4 x10e3 /uL 3.4-10 .8 Not Available [facility] ([facility]) [address], [place], [address], 03/30/2020 08:19:48 03/29/1903/30/2020 CBC w/ auto diff RBC 4.28 x10e6 /uL 3.77-5 .28 Not Available [facility] ([facility]) [address], [place], [address], 03/30/2020 08:19:48 03/29/1903/30/2020 CBC w/ auto diff hemoglobin 13.2 g/dL 11.1-1 5.9 Not Available [facility] ([facility]) [address], [place], [address], 03/30/2020 08:19:48 03/29/1903/30/2020 CBC w/ auto diff hematocrit 38.4 % 34.0-4 6.6 Not Available [facility] ([facility]) [address] [place], [address], 03/30/2020 08:19:48 03/29/1903/30/2020 CBC w/ auto diff MCV 90 fL 79-97 Not Available [facility] ([facility]) [address] [place], [address], 03/30/2020 08:19:48 03/29/1903/30/2020 CBC w/ auto diff MCH 30.8 pg 26.6-3 3.0 Not Available [facility] ([facility]) [address] [place], [address], 03/30/2020 08:19:48 03/29/19 21 03/30/2020 CBC w/ auto diff MCHC 34.4 g/dL 31.5-3 5.7 Not Available [facility] ([facility]) [address], [place], [address], 03/30/2020 08:19:48 03/29/19 21 03/30/2020 CBC w/ auto diff RDW 11.7 % 11.7-1 5.4 Not Available [facility] ([facility]) [address], [place], [address], 03/30/2020 08:19:48 03/29/19 21 03/30/2020 CBC w/ auto diff platelets 272 x10e3 /uL 150-45 0 Not Available [facility] ([facility]) [address], [place], [address], 03/30/2020 08:19:48 03/29/19 21 03/30/2020 CBC w/ auto diff neutrophils 55 % not estab. Not Available [facility] ([facility]) [address], [place], [address], 03/30/2020 08:19:48 03/29/19 21 03/30/2020 CBC w/ auto diff lymphs 30 % not estab. Not Available [facility] ([facility]) [address], [place], [address], 03/30/2020 08:19:48 03/29/19 21 03/30/2020 CBC w/ auto diff monocytes 6 % not estab. Not Available [facility] ([facility]) [address], [place], [address], 03/30/2020 08:19:48 03/29/19 21 03/30/2020 CBC w/ auto diff eos 8 % not estab. Not Available [facility] ([facility]) [address], [place], [address], 03/30/2020 08:19:48 03/29/19 21 03/30/2020 CBC w/ auto diff basos 1 % not estab. Not Available [facility] ([facility]) [address] [place], [address], 03/30/2020 08:19:48 03/29/19 21 03/30/2020 CBC w/ auto diff immature cells LUMBER TRIPPER Not Available [facility] ([facility]) [address] [place], [address], 03/30/2020 08:19:48 03/29/1903/30/2020 CBC w/ auto diff neutrophils (absolute) 5.2 x10e3 /uL 1.4-7. 0 Not Available [facility] ([facility]) [address] [place], [address], 03/30/2020 08:19:48 03/29/19 21 03/30/2020 CBC w/ auto diff lymphs (absolute) 2.8 x10e3 /uL 0.7-3. 1 Not Available [facility] ([facility]) [address] [place], [address], 03/30/2020 08:19:48 03/29/19 21 03/30/2020 CBC w/ auto diff monocytes(ab solute) 0.6 x10e3 /uL 0.1-0. 9 Not Available [facility] ([facility]) [address] [place], [address], 03/30/2020 08:19:48 03/29/19 21 03/30/2020 CBC w/ auto diff eos (absolute) 0.7 x10e3 /uL 0.0-0. 4 above high normal Not Available [facility] ([facility]) [address] [place], [address], 03/30/2020 08:19:48 03/29/1903/30/2020 CBC w/ auto diff baso (absolute) 0.1 x10e3 /uL 0.0-0. 2 Not Available [facility] ([facility]) [address], [place], [address], 03/30/2020 08:19:48 03/29/19 21 03/30/2020 CBC w/ auto diff immature granulocytes 0 % not estab. Not Available [facility] ([facility]) [address], [place], [address], 03/30/2020 08:19:48 03/29/19 21 03/30/2020 CBC w/ auto diff immature grans (abs) 0.0 x10e3 /uL 0.0-0. 1 Not Available [facility] ([facility]) [address], [place], [address], 03/30/2020 08:19:48 03/29/1903/30/2020 CBC w/ auto diff NRBC LUMBER TRIPPER Not Available [facility] ([facility]) [address], [place], [address], 03/30/2020 08:19:48 03/29/1903/30/2020 CBC w/ auto diff hematology comments: LUMBER TRIPPER Not Available [facility] ([facility]) [address], [place], [address], 03/30/2020 08:19:48 03/29/1903/30/2020 CMP, serum or plasm a glucose 86 mg/dL 65-99 Not Available [facility] ([facility]) [address] [place], [address], 03/30/2020 08:19:49 03/29/1903/30/2020 CMP, serum or plasm a BUN 7 mg/dL 6-20 Not Available [facility] ([facility]) [address] [place], [address], 03/30/2020 08:19:49 03/29/19 21 03/30/2020 CMP, serum or plasm a creatinine 0.73 mg/dL 0.57-1 .00 Not Available [facility] ([facility]) [address] [place], [address], 03/30/2020 08:19:49 03/29/19 21 03/30/2020 CMP, serum or plasm a eGFR if nonafricn AM 109 mL/mi n/1.7 3 >59 Not Available [facility] ([facility]) [address] [place], [address], 03/30/2020 08:19:49 03/29/19 21 03/30/2020 CMP, serum or plasm a eGFR if africn AM 126 mL/mi n/1.7 3 >59 Not Available [facility] ([facility]) [address] [place], [address], 03/30/2020 08:19:49 03/29/19 21 03/30/2020 CMP, serum or plasm a BUN/creatini ne ratio 10 9-23 Not Available [facility] ([facility]) [address] [place], [address], 03/30/2020 08:19:49 03/29/19 21 03/30/2020 CMP, serum or plasm a sodium 142 mmol/ L 134-14 4 Not Available [facility] ([facility]) [address] [place], [address], 03/30/2020 08:19:49 03/29/1903/30/2020 CMP, serum or plasm a potassium 4.2 mmol/ L 3.5-5. 2 Not Available [facility] ([facility]) [address] [place], [address], 03/30/2020 08:19:49 03/29/19 21 03/30/2020 CMP, serum or plasm a chloride 105 mmol/ L 96-106 Not Available [facility] ([facility]) [address] [place], [address], 03/30/2020 08:19:49 03/29/1903/30/2020 CMP, serum or plasm a carbon dioxide, total 23 mmol/ L 20- Not Available [facility] ([facility]) [address] [place], [address], 03/30/2020 08:19:49 03/29/1903/30/2020 CMP, serum or plasm a calcium 9.3 mg/dL 8.7-10 .2 Not Available [facility] ([facility]) [address] [place], [address], 03/30/2020 08:19:49 03/29/1903/30/2020 CMP, serum or plasm a protein, total 7.0 g/dL 6.0-8. 5 Not Available [facility] ([facility]) [address] [place], [address], 03/30/2020 08:19:49 03/29/1903/30/2020 CMP, serum or plasm a albumin 4.2 g/dL 3.8-4. 8 Not Available [facility] ([facility]) [address] [place], [address], 03/30/2020 08:19:49 03/29/1903/30/2020 CMP, serum or plasm a globulin, total 2.8 g/dL 1.5-4. 5 Not Available [facility] ([facility]) [address] [place], [address], 03/30/2020 08:19:49 03/29/1903/30/2020 CMP, serum or plasm a A/G ratio 1.5 1.2-2. 2 Not Available [facility] ([facility]) [address] [place], [address], 03/30/2020 08:19:49 03/29/19 21 03/30/2020 CMP, serum or plasm a bilirubin, total <0.2 mg/dL 0.0-1. 2 Not Available [facility] ([facility]) [address] [place], [address], 03/30/2020 08:19:49 03/29/19 21 03/30/2020 CMP, serum or plasm a alkaline phosphatase 92 IU/L 39-117 Not Available [facility] ([facility]) [address] [place], [address], 03/30/2020 08:19:49 03/29/1903/30/2020 CMP, serum or plasm a AST (SGOT) 11 IU/L 0-40 Not Available [facility] ([facility]) [address] [place], [address], 03/30/2020 08:19:49 03/29/1903/30/2020 CMP, serum or plasm a ALT (SGPT) 11 IU/L 0-32 Not Available [facility] ([facility]) [address] [place], [address], 03/30/2020 08:19:49 03/29/19 21 03/30/2020 lipid panel , serum cholesterol, total 133 mg/dL 100-19 9 Not Available [facility] ([facility]) [address] [place], [address], 03/30/2020 08:19:49 03/29/1903/30/2020 lipid panel , serum triglyceride s 142 mg/dL 0-149 Not Available [facility] ([facility]) [address] [place], [address], 03/30/2020 08:19:49 03/29/19 21 03/30/2020 lipid panel , serum HDL cholesterol 38 mg/dL >39 below low normal Not Available [facility] ([facility]) [address], [place], [address], 03/30/2020 08:19:49 03/29/19 21 03/30/2020 lipid panel , serum VLDL cholesterol janet 25 mg/dL 5-40 Not Available [facility] ([facility]) [address] [place], [address], 03/30/2020 08:19:49 03/29/19 21 03/30/2020 lipid panel , serum LDL chol calc ([facility]) 70 mg/dL 0-99 Not Available [facility] ([facility]) [address], [place], [address], 03/30/2020 08:19:49 03/29/19 21 03/30/2020 lipid panel , serum comment: LUMBER TRIPPER Not Available [facility] ([facility]) [address] [place], [address], 03/30/2020 08:19:49 03/29/19 21 03/30/2020 lipid panel , serum LDL/HDL ratio 1.8 ratio 0.0-3. 2 LDL/H DL Ratio Men Women 1/2 Avg.R isk 1.0 1.5 Avg.R isk 3.6 3.2 2X Avg.R isk 6.2 5.0 3X Avg.R isk 8.0 6.1 Not Available [facility] ([facility]) [address], [place], [address], 03/30/2020 08:19:49 03/29/1903/30/2020 lh + FSH, serum LH 17.5 mIU/m L Adult Femal e: Folli cular phase 2.4 - 12.6 Ovula tion phase 14.0 - 95.6 Lutea l phase 1.0 - 11.4 Postm enopa usal 7.7 - 58.5 Not Available [facility] ([facility]) [address] [place], [address], 03/30/2020 08:19:50 03/29/19 21 03/30/2020 lh + FSH, serum FSH 5.8 mIU/m L Adult Femal e: Folli cular phase 3.5 - 12.5 Ovula tion phase 4.7 - 21.5 Lutea l phase 1.7 - 7.7 Postm enopa usal 25.8 - 134.8 Not Available [facility] ([facility]) [address] [place], [address], 03/30/2020 08:19:50 03/29/19 21 03/30/2020 HbA1c (hemo globi n A1c), blood hemoglobin A1C 5.3 % 4.8-5. 6 Predi abete s: 5.7 - 6.4 Diabe anali: >6.4 Glyce hyun contr ol for adult s with diabe anali: <7.0 Not Available [facility] ([facility]) [address] [place], [address], 03/30/2020 08:19:51 03/29/1903/30/2020 dhea- sulfa te, serum DHEA-sulfate 295.0 ug/dL 84.8-3 78.0 Not Available [facility] ([facility]) [address] [place], [address], 03/30/2020 08:19:51 03/29/1903/30/2020 testo stero ne, total , serum testosterone , serum 42 NG/dL 8-48 Not Available [facility] ([facility]) [address] [place], [address], 03/30/2020 08:19:52 03/29/1903/30/2020 TSH, ultra -sens itive , serum TSH 1.730 uIU/m L 0.450- 4.500 Not Available [facility] ([facility]) [address] [place], [address], 03/30/2020 08:19:53 03/29/19 21 03/30/2020 prola ctin, serum prolactin 16.5 NG/mL 4.8-23 .3 Not Available [facility] ([facility]) [address] [place], [address], 03/30/2020 08:19:53 03/29/19 21 03/30/2020 estra diol, serum estradiol 58.3 pg/mL Adult Femal e: Folli cular phase 12.5 - 166.0 Ovula tion phase 85.8 - 498.0 Lutea l phase 43.8 - 211.0 Postm enopa usal <6.0 - 54.7 Pregn terry 1st trime ster 215.0 - >4300 .0 Star ECLIA metho dolog y Not Available [facility] ([facility]) [address], [place], [address], 03/30/2020 08:19:54 03/29/19 21 03/30/2020 proge stero ne, serum progesterone 2.3 NG/mL Folli cular phase 0.1 - 0.9 Lutea l phase 1.8 - 23.9 Ovula tion phase 0.1 - 12.0 Pregn ant First trime ster 11.0 - 44.3 Secon d trime ster 25.4 - 83.3 Third trime ster 58.7 - 214.0 Postm enopa usal 0.0 - 0.1 Not Available [facility] ([facility]) [address] [place], [address], 03/30/2020 08:19:55 04/06/19 21 04/06/2020 US, pelvi s, trans abdom inal + trans vagin al No observ ation record ed. [address], [place], [address], 04/12/2020 14:20:02 04/07/19 21 04/06/2020 US, pelvi s, trans abdom inal + trans vagin al No observ ation record ed. [facility] (Im[facility]) [address] [place] [address] [address], [place], [address], 05/14/2020 18:02:56 11/12/19 21 11/03/2020 XR, hand No observ ation record ed. [email or web address] Not Available 11/14 12:18:27 12/10/19 23 12/09/2022 XR, foot No observ ation record ed. [address], [place], [address], 12/09/2022 17:28:29 12/10/19 23 12/09/2022 imagi ng/di agnos tic resul t No observ ation record ed. [address], [place], [address], 12/09/2022 17:28:18 12/10/19 23 12/09/2022 US, lena x, jono s, lower extre mity No observ ation record ed. [email or web address], [place], [address], 12/10/2022 09:59:40 Result Notes None recorded. 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 2018 Not Available [facility] 2 15:39:59 Acute pharyngiti s 041438249 Active 2018 Not Available [facility] 2 15:39:59 Kidney stone 94553455 Active 2018 Not Available [facility] 2 15:39:59 Vitamin D deficiency 11153273 Active 2018 Not Available [facility] 2 15:39:59 Genital herpes simplex 93793278 Active 2018 Not Available [facility] 2 15:39:59 Chlamydial infection 868341994 Active 2018 Not Available [facility] 2 15:39:59 History of endometria l ablation 6910660876833 07 Active 2020 Not Available [facility] 2 15:39:59 History of female sterilizat ion 865253390 Active 2020 Not Available [facility] 2 15:39:59 Notes:Some problems listed i n Documents: #[id number], #[id number] could not be added to this patient's chart. Please review these documents and add these problems to the patient's chart manually as needed. Problem Notes None recorded. Procedures Surgical History Date Name Laterality Status Provider Name and Address Organization Details Recorded Time 08/30/19 19 Generic Procedure completed Sree Holbrook [facility] 08/29/2018 21:55:13 08/03/19 19 Date of Last Pap Smear completed Lisy Rodriguez MA [facility] 08/02/2018 15:32:53 03/15/19 14 endometrial ablation completed Sree Holbrook [facility] 06/27/2018 17:15:33 08/14/19 13 Tubal Ligation completed Mayuri Godoy MA [facility] 06/17/2018 14:29:05 Imaging Results None recorded. Procedure Notes None recorded. Medical Equipment None Reported. Allergies No known drug allergies Medications Name Sig Start Date Stop Date Status Note LastModified by Organization Details LastModified Time multivitami n tablet Take 1 tablet every day by oral route. 08/29 completed Not Available Not Available Not Available azithromyci n 250 mg tablet TK 2 TS PO ON DAY 1, THEN TK 1 T PO D FOR 4 DAYS 11/19 completed Not Available Not Available Not Available ibuprofen 800 mg tablet Take 1 tablet 3 times a day by oral route as needed. 2020 active Not Available Not Available Not Avai lable fluconazole 150 mg tablet Take 1 tablet every 72 hours by oral route for 9 days. 08/29 completed Not Available Not Available Not Available benzonatate 200 mg capsule TAKE 1 CAPSULE BY MOUTH THREE TIMES DAILY active Not Available Not Available No t Available clarithromy cassandra 500 mg tablet TAKE 1 TABLET BY MOUTH TWICE DAILY FOR 10 DAYS active Not Available Not Available No t Available meloxicam 15 mg tablet TAKE 1 TABLET BY MOUTH EVERY DAY active Not Available Not Available No t Available prednisone 20 mg tablet 06/17 completed Not Available Not Available Not Available lidocaine 4 % topical cream active Not Available Not Available Not Available clindamycin HCl 150 mg capsule Take 1 capsule every 6 hours by oral route for 10 days. 08/29 completed Not Available Not Available Not Available acetaminoph en 300 mg-codeine 30 mg tablet 06/17 completed Not Available Not Available Not Available tramadol 50 mg tablet 06/20 completed Not Available Not Available Not Available Condoms-Pre m Lubricated Take 1 device by miscell. route. 06/20 completed Not Available Not Available Not Available acyclovir 800 mg tablet Take 1 tablet every day by oral route. 12/11 completed Not Available Not Available Not Available amoxicillin 875 mg tablet TAKE 1 TABLET BY MOUTH EVERY 12 HOURS 11/19 completed Not Available Not Available Not Available famotidine 20 mg tablet 06/27 completed Not Available Not Available Not Available dicyclomine 20 mg tablet 06/20 completed Not Available Not Available Not Available doxycycline monohydrate 100 mg capsule TAKE 1 CAPSULE BY MOUTH TWICE DAILY active Not Available Not Available No t Available mupirocin 2 % topical ointment APPLY TOPICALLY TO THE AFFECTED AREA THREE TIMES DAILY active Not Available Not Available No t Available norethindro ne acetate 5 mg tablet Take 1 tablet every day by oral route as directed. 12/11 completed Not Available Not Available Not Available methylpredn isolone 4 mg tablets in a dose pack FOLLOW PACKAGE DIRECTION S active Not Available Not Available No t Available Vesicare 5 mg tablet Take 1 tablet every day by oral route for 30 days. 06/20 completed Not Available Not Available Not Available ProAir HFA 90 mcg/actuati on aerosol inhaler 06/17 completed Not Available Not Available Not Available cholecalcif carmina (vitamin D3) 1,250 mcg (50,000 unit) capsule Take 1 capsule every week by oral route with meals for 30 days. 08/29 completed Not Available Not Available Not Available Calcium with Vitamin D 600 mg-10 mcg (400 unit) tablet Take 1 tablet twice a day by oral route. 12/11 completed Not Available Not Available Not Available Pennsaid 2 % topical solution in packet active Not Available Not Available Not Available Slynd 4 mg (28) tablet Take 1 tablet every day by oral route. 06/20 completed Not Available Not Available Not Available Oriahnn 300-1-0.5 mg(AM)/300 mg(PM) capsules Take 1 capsule twice a day by oral route. 12/11 completed Not Available Not Available Not Available Vitals Date Recorded Body weight Body mass index (BMI) Body height Provider Name and Address Organization Details Last Updated DateTime 03/28/2020 87767.55 g 34.8 kg/m2 157.48 cm Melinda Hagan MA [facility] 03/28/2020 15:27:18 Date Recorded Body height Provider Name an d Address Organization Details Last Updated DateTime 04/30/2020 157.48 cm Jonelle joyner MA [facility] 04/30/2020 14:24:49 Date Recorded Body height Body mass index (BMI) Body weight Provider Name and Address Organization Details Last Updated DateTime 06/20/2020 157.48 cm 34.8 kg/m2 00435.55 g Melinda Hagan MA [facility] 06/20/2020 14:28:33 Date Recorded Body height Body mass index (BMI) Body weight Heart rate Oxygen saturation Oxygen saturation in Arterial blood by Pulse oximetry Systolic And Diastolic Provider Name and Address Organization Details Last Updated DateTime 3 158.75 cm 35.1 kg/m2 03912.5 1 g 89 /min 98 % 98 % 108/77 mm[Hg] Ketty Galeas MA [facility] 3 16:13:33 Date Recorded Body height Body mass index (BMI) Body weight Body temperature Oxygen saturation Oxygen saturation in Arterial blood by Pulse oximetry Heart rate Systolic And Diastolic Provider Name and Address Organization Details Last Updated DateTime 2 158.75 cm 36 kg/m2 59544.7 6 g 98.1 [degF] 95 % 95 % 76 /min 92/68 mm[Hg] Stoney Todd MA [facility] 2 11:19:36 Social History Question Answer Notes LastModified by Organizat ion Details LastModified Time Tobacco Smoking Status Current Every Day Smoker Mayuri Godoy MA [facility], [place] - [place] 06/17/2018 14:25:45 Do You Have An Advance Directive? No Information not available 06/17/2018 Is Blood Transfusion Acceptable In An Emergency? Yes Information not available 06/20/2020 What Is Your Level Of Caffeine Consumption? Heavy Information not available 06/27/2018 How Much Tobacco Do You Chew? None Information not available 06/17/2018 What Type Of Diet Are You Following? REGULAR Information not available 06/17/2018 Which Illicit Or Recreational Drugs Have You Used? Denies Information not available 06/17/2018 Education 12 Information n ot available 06/17/2018 What Is The Highest Grade Or Level Of School You Have Completed Or The Highest Degree You Have Received? [id number] Information not available 06/20/2020 Are There Any Guns Present In Your Home? Yes Information not available 06/17/2018 Hard Of Hearing Or Deaf In One Or Both Ears? No Information not available 06/17/2018 Legally Blind In One Or Both Eyes? No Information not available 06/17/2018 Marital Status Single Informati on not available 06/17/2018 What Was The Date Of Your Most Recent Tobacco Screening? 11/19/2022 Information not available 11/19/2022 How Many Children Do You Have? 5 Information not available 06/20/2020 What Is Your Current Pack Years? 10-19packye ars Information not available 06/20/2020 Performs Monthly Self-breast Exam? No Information not available 06/17/2018 What Is Your Relationship Status? Information not available 06/20/2020 Do You Use Your Seat Belt Or Car Seat Routinely? Yes Information not available 06/20/2020 Seat Belts Used Routinely Yes Information not available 06/17/2018 Are You Sexually Active? Yes Information not available 06/20/2020 Smoke Alarm In Home Yes Information not available 06/17/2018 Do You Have Smoke And Carbon Monoxide Detectors In Your Home? Yes Information not available 06/20/2020 At What Age Did You Start Smoking Tobacco? 13 Information not available 06/17/2018 Are You Passively Exposed To Smoke? Yes Information not available 06/20/2020 How Much Tobacco Do You Smoke? 1 PPD 3/4 PPD [email or web address] Information not available 12/11/2021 General Stress Level Low Information not available 06/17/2018 Do You Use Sunscreen Routinely? Yes Information not available 06/17/2018 Has Tobacco Cessation Counseling Been Provided? No Information not available 06/27/2018 On What Date Was Tobacco Cessation Counseling Provided? 11/19/2022 Melchor Answered No To The Tobacco Cessation Counseling Provided Question On 06/27/2018. Information not available 11/19/2022 How Many Years Have You Smoked Tobacco? 15 Information not available 06/17/2018 Sex: Unknown Functional Status Question Answer Note LastModified by Organizat ion Details LastModified Time Do you or have you ever used any other forms of tobacco or nicotine? No Information not available 06/20/2020 What is your level of alcohol consumption? Occasional Information not available 06/17/2018 Do you or have you ever used smokeless tobacco? Never used smokeless tobacco Information not available 03/28/2020 Are you currently employed? 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 Never used electronic cigarettes Information not available 03/28/2020 What is your exercise level? Moderate Information not available 06/27/2018 Mental Status None recorded. Family History Relationship Description Onset Age of this Age Resolved Age Notes LastModified by Organization Details LastModified Time Paternal Grandmother Diabetes mellitus [email or web address] Not available 07/2018 14:22:50 Maternal Aunt Endometriosi s (clinical) [email or web address] Not available 0 06/17/2018 14:24:21 Maternal Aunt Endometriosi s (clinical) [email or web address] Not available 0 06/17/2018 14:24:18 Maternal Aunt Endometriosi s (clinical) [email or web address] Not available 0 06/17/2018 14:24:26 Maternal Grandmother Hyperchjaquelin sheets Not available 06/27 17:12:55 Medical History Condition Response Coronary Artery Disease N Atrial Fibrillation N High Blood Pressure N Thyroid Problems N Kidney or Bladder Problems N Depression Y COPD N Blood Clots Y GI Problems N Skin Problems N Anemia N Heart Attack ([place]) N Diabetes N Anxiety Disorder Y Muscle, Joint, or Bone Problems N Seizures/Epilepsy N Acid Reflux (GERD) N Cancer N Stroke N Allergies N Asthma N High Cholesterol N Hepatitis N Liver Disease N Headaches N Osteoporosis N Heart Failure N Gynecological History Statement/Question Response Abnormal Pap N Sexually Active? Y On BCP's at Conception? N Menses Monthly N STIs/STDs N HPV Vaccine N Date of Last Pap Smear 08/02/2018 Current Control Method Tubal Ligat ion Age at First Child 13 LMP Obstetrics History GPAL:G 5 P 5 0 0 5 Type Value Multiple Births 0 Full Term 5 Induced 0 Spontaneous 0 Premature 0 Living 5 Ectopics 0 Total 5 Immunizations Vaccine Type Date Status Note Provider Nam e and Address Organization Details Recorded Time HPV9 06/27/2018 completed Not Available [facility] 04/01/2019 02:45:25 Past Encounters Encounter ID Performer Location Encounter Start Date Encounter Closed Date Diagnosis/Indication Diagnosis SNOMED-CT Code Diagnosis ICD10 Code Diagnosis IMO Codes Diagnosis Note [id number] MD Enma Montano (Adult Med) [address] [place] [address] [phone] 0 06/17/2018 14:12:16 06/17/2018 15:06:44 Obese 468578246 E66.9 Bladder mu scle dysfunction - overactive 910983735 N32.81 [id number] MD Enma Cheema (DINING SERVER) [address] [place] [address] [id number] 0 06/27/2018 16:21:02 06/28/2018 16:27:47 Kidney stone 46667668 N20.0 Active or passive immunization 505904460 Z23 Female sterilization 608 95174 Z30.2 2013 Family maurice nning surveillance 968863024 Z30.09 Bladder mu scle dysfunction - overactive 461684792 N32.81 [id number] MD Enma Montano (Adult Med) [address] [place] [address] [id number] 0 07/07/2018 12:23:35 07/11/2018 09:29:37 Acute pharyngitis 156736471 J02.9 Vitamin D deficiency 347 93294 E55.9 [id number] MD Enma Cheema (DINING SERVER) [address] [place] [address] [id number] 0 08/02/2018 15:16:28 08/03/2018 10:46:31 Exposure to sexually transmissible disorder 155700871 Z20.2 Gynecologi c examination 53153820 Z01.419 Z11.51 [id number] MD Enma Cheema (DINING SERVER) [address] [place] [address] [id number] 08/29/2018 14:40:12 08/31/2018 10:30:19 Genital herpes simplex 25962046 A60.9 Exposure t o sexually transmissible disorder 194581310 Z20.2 Cyst of vulva 67228879 N 90.7 Gynecologi c examination 52405597 Z01.419 Z11.51 [id number] [facility] [address] [place] [address] [phone] 0 03/28/2020 09:09:05 04/05/2020 11:48:50 Obese 890844904 E66.9 Abnormal u terine bleeding 0340924854 9100 N93.9 Genital he rpes simplex 65130811 A60.9 [id number] MD Enma Cheema (DINING SERVER) [address] [place] [address] [id number] 0 04/30/2020 14:23:41 05/09/2020 06:48:16 History of endometrial ablation 4400505079 15718 N99.85 Abnormal u terine bleeding 4263358790 9100 N93.9 Uterine leiomyoma 021076 05 D25.9 medical treatment if fails the robotic hyst History of female sterilization 042632063 Z92.0 [id number] MD Enma Cheema (DINING SERVER) [address] [place] [address] [id number] 0 06/20/2020 08:16:17 06/21/2020 13:50:20 History of endometrial ablation 5581113974 47050 N99.85 History of female sterilization 941607719 Z92.0 Uterine leiomyoma 395398 05 D25.9 medical treatment if fails the robotic hyst [id number] MD Enma Montano (Adult Med) [address] [place] [address] [id number] 0 12/11/2021 10:41:43 12/12/2021 11:00:48 Upper respiratory infection 53747885 J06.9 Discussed with patient. She agreed for the treatment of upper respirator y infection. Pain of left heel 123261 0484 875479 M79.672 Both heels both end of day. possible strain or sprain, she agreed to try med as ordered. [id number] MD Enma Montano (Adult Med) [address] [place] [address] [id number] 0 11/19/2022 16:02:45 11/20/2022 15:46:00 Pre-surgery evaluation 251155802 Z01.818 Ok for right foot operation. . Raman Leslie will be informed. Obesity 020748653 E66.9 BMI is 35.1 as 11-19-22. diet, exercise and keep the weight down. Health Concerns Section Related Observation LastModified by Organization Detai ls LastModified Time None Recorded Concern Status LastModified by Organization Details LastModified Time None Recorded Advance Directives Directive N: Payers Insurance Date Sequence Insurance Name Policy Number Policy Leon Covered Member ID Leon Member ID Guarantor Name 11/16/2022 1 [facility] [id number] Ankita Robledo [id number] Ankita Robledo 11/16/2022 2 [place] [facility] Ankita Banueloson [id number] Ankita Robledo Notes Date Note Type Note Provider Name and Address Organization Details Recorded Time 03/28/2020 text/html Abnormal BleedingReported by PatientHPIFor associated symptoms, patient reportsno dysmenorrhea,no pelvic pain,no abdominal pain,no dyspareunia,no fatigue,no dizziness,no anemia/iron supplements,no shortness of breath,no cp/palpitations,no bloating,no change in bowel function,no urinary symptoms,no pms,no vaginal discharge, andno vaginal itching/irritation.ROS as noted in the [facility] 28 year old CF with history of tubal sterilization presents today for WWE. She has a recent history of a kidney stone on 06/27/18 and today reports similar right groin pain x 2-3 days but repeat ER imaging did not visualize a stone. She is scheduled to see Dr. Conroy, urologist in the near future. Denies fever, chills, flank pain, nausea, vomiting, hematuria, dysuria, diarrhea, and constipation. Sree rodriguez, [facility] 03/28/2020 15:33:31 04/30/2020 text/html Abnormal BleedingReported by PatientHPIFor associated symptoms, patient reportsno dysmenorrhea,no pelvic pain,no abdominal pain,no dyspareunia,no fatigue,no dizziness,no anemia/iron supplements,no shortness of breath,no cp/palpitations,no bloating,no change in bowel function,no urinary symptoms,no pms,no vaginal discharge, andno vaginal itching/irritation.ROS as noted in the [facility] 28 year old CF with history of tubal sterilization endometrial ablation found to have fibroid with US for AUB placed on SLYND Sree rodriguez, [facility] 04/30/2020 16:55:10 06/20/2020 text/html Abnormal BleedingReported by PatientHPIFor associated symptoms, patient reportsno dysmenorrhea,no pelvic pain,no abdominal pain,no dyspareunia,no fatigue,no dizziness,no anemia/iron supplements,no shortness of breath,no cp/palpitations,no bloating,no change in bowel function,no urinary symptoms,no pms,no vaginal discharge, andno vaginal itching/irritation.ROS as noted in the [facility] 28 year old CF with history of tubal sterilization endometrial ablation found to have fibroid with US for AUB placed on SLYND Sree rodriguez, [facility] 06/20/2020 21:10:23 12/11/2021 text/html ROS as noted in the HPI Office visit, right ear sore, no fever, mildly sore throat. and both heels sore by the end of day, works [employer]. NKDA. Ismael West MD Attn: Accounting, [address] [facility], [place], [address], [facility] - [place] 12/11/2021 18:15:20 11/19/2022 text/html ROS as noted in the HPI Office visit, NKDA. 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 She is going to have right foot operation by linux system engineer Ron Low in [facility]. Ismael West MD Attn: Accounting,[address] [facility], [place], [address], [facility] 11/19/2022 17:29:38 OBGyn Episode Ob Episode Information Episode Created Date Number of Fetuses Patient Bloodtype Patient rh Status Prepregnancy Weight lbs Domestic Partner Domestic Partner Phone Father Name Barrel Drainer Status 06/28/19 19 1 CLOSED Fetus Data First Name Last Name Admitted to NICU Weight (g) Sex Living Outcome Pediatric Complications Fetus ID Race Codes Race Delivery Type 2494.75 6 F Full Term [id number] Vaginal Taye Calculation Initial Taye Date Initial Exam Date Initial Exam Provider Initial Ultrasound Date Last Menstrual Period Date Ultra Sound Weeks Gestation 0 Eighteen To Twenty Week Taye Update Ultra Sound Date Fundal Height At Umbil Quickening Date Ultra Sound Latest Weeks Gestation Final Taye Confirmed By Final Taye Confirmed Date Final Taye Date Ultra Sound Latest Days Gestation 0 0 Menstrual History Last Menstrual Date Menses Monthly On Bcp Conception Prior Menses Frequency Hcg Plus Date Menarche Onset Age Delivery Information Delivery Date Delivery Type Labor Anesthesia Weeks Gestation Incision Type Labor Labor Length Hrs Delivered By Post Complications Tubal Sterilization Discharge Date Comments 1 Discharge Information Feeding Method Contraceptive Method Maternal HG B and HCT Levels Ob Episode Information Episode Created Date Number of Fetuses Patient Bloodtype Patient rh Status Prepregnancy Weight lbs Domestic Partner Domestic Partner Phone Father Name Barrel Drainer Status 06/28/19 19 1 CLOSED Fetus Data First Name Last Name Admitted to NICU Weight (g) Sex Living Outcome Pediatric Complications Fetus ID Race Codes Race Delivery Type 3430.06 2704 M Full Term [id number] Vaginal Taye Calculation Initial Taye Date Initial Exam Date Initial Exam Provider Initial Ultrasound Date Last Menstrual Period Date Ultra Sound Weeks Gestation 0 Eighteen To Twenty Week Taye Update Ultra Sound Date Fundal Height At Umbil Quickening Date Ultra Sound Latest Weeks Gestation Final Taye Confirmed By Final Taye Confirmed Date Final Atye Date Ultra Sound Latest Days Gestation 0 0 Menstrual History Last Menstrual Date Menses Monthly On Bcp Conception Prior Menses Frequency Hcg Plus Date Menarche Onset Age Delivery Information Delivery Date Delivery Type Labor Anesthesia Weeks Gestation Incision Type Labor Labor Length Hrs Delivered By Post Complications Tubal Sterilization Discharge Date Comments 3 Discharge Information Feeding Method Contraceptive Method Maternal HG B and HCT Levels Ob Episode Information Episode Created Date Number of Fetuses Patient Bloodtype Patient rh Status Prepregnancy Weight lbs Domestic Partner Domestic Partner Phone Father Name Barrel Drainer Status 06/28/19 19 1 CLOSED Fetus Data First Name Last Name Admitted to NICU Weight (g) Sex Living Outcome Pediatric Complications Fetus ID Race Codes Race Delivery Type 3770.25 6704 F Full Term [id number] Vaginal Taye Calculation Initial Taye Date Initial Exam Date Initial Exam Provider Initial Ultrasound Date Last Menstrual Period Date Ultra Sound Weeks Gestation 0 Eighteen To Twenty Week Taye Update Ultra Sound Date Fundal Height At Umbil Quickening Date Ultra Sound Latest Weeks Gestation Final Taye Confirmed By Final Taye Confirmed Date Final Taye Date Ultra Sound Latest Days Gestation 0 0 Menstrual History Last Menstrual Date Menses Monthly On Bcp Conception Prior Menses Frequency Hcg Plus Date Menarche Onset Age Delivery Information Delivery Date Delivery Type Labor Anesthesia Weeks Gestation Incision Type Labor Labor Length Hrs Delivered By Post Complications Tubal Sterilization Discharge Date Comments 7 Discharge Information Feeding Method Contraceptive Method Maternal HG B and HCT Levels Ob Episode Information Episode Created Date Number of Fetuses Patient Bloodtype Patient rh Status Prepregnancy Weight lbs Domestic Partner Domestic Partner Phone Father Name Barrel Drainer Status 06/28/19 19 1 CLOSED Fetus Data First Name Last Name Admitted to NICU Weight (g) Sex Living Outcome Pediatric Complications Fetus ID Race Codes Race Delivery Type 3515.33 8 F Full Term 37126 Vaginal Taye Calculation Initial Taye Date Initial Exam Date Initial Exam Provider Initial Ultrasound Date Last Menstrual Period Date Ultra Sound Weeks Gestation 0 Eighteen To Twenty Week Taye Update Ultra Sound Date Fundal Height At Umbil Quickening Date Ultra Sound Latest Weeks Gestation Final Taye Confirmed By Final Taye Confirmed Date Final Taye Date Ultra Sound Latest Days Gestation 0 0 Menstrual History Last Menstrual Date Menses Monthly On Bcp Conception Prior Menses Frequency Hcg Plus Date Menarche Onset Age Delivery Information Delivery Date Delivery Type Labor Anesthesia Weeks Gestation Incision Type Labor Labor Length Hrs Delivered By Post Complications Tubal Sterilization Discharge Date Comments 9 Discharge Information Feeding Method Contraceptive Method Maternal HG B and HCT Levels Ob Episode Information Episode Created Date Number of Fetuses Patient Bloodtype Patient rh Status Prepregnancy Weight lbs Domestic Partner Domestic Partner Phone Father Name Barrel Drainer Status 06/28/19 19 1 CLOSED Fetus Data First Name Last Name Admitted to NICU Weight (g) Sex Living Outcome Pediatric Complications Fetus ID Race Codes Race Delivery Type 3146.56 7704 F Full Term [id number] Vaginal Taye Calculation Initial Taye Date Initial Exam Date Initial Exam Provider Initial Ultrasound Date Last Menstrual Period Date Ultra Sound Weeks Gestation 0 Eighteen To Twenty Week Taye Update Ultra Sound Date Fundal Height At Umbil Quickening Date Ultra Sound Latest Weeks Gestation Final Taye Confirmed By Final Taye Confirmed Date Final Taye Date Ultra Sound Latest Days Gestation 0 0 Menstrual History Last Menstrual Date Menses Monthly On Bcp Conception Prior Menses Frequency Hcg Plus Date Menarche Onset Age Delivery Information Delivery Date Delivery Type Labor Anesthesia Weeks Gestation Incision Type Labor Labor Length Hrs Delivered By Post Complications Tubal Sterilization Discharge Date Comments 4 Discharge Information Feeding Method Contraceptive Method Maternal HG B and HCT Levels
--- OUTSIDE RECORDS SUMMARY | 2025-01-10 00:58 | XMS_ITS | Clinical Summary ---
Author Organization [facility] Address [address] [place] [id number] Care Team Providers Care Serology Teacher Name Role Phone None, Provider MD Primary [...] CDT - 11/29/2024 1:33 AM CDT Emergency [facility] [place] [address] Venkat Wasserman MD,PHD Numbness Discharge Disposition: Home [...] this topic Medical Devices Implanted Type Area Guidance Director Device Identifier Shelf Expiration Date Model / Serial / Lot [place] Ti Suture 3.5mm #0 [employer] - [id number] Implanted:Qty : 2 on 12/08/2022 by Ron Leslie DPM at [facility] [employer] Ralston Right: Heel [employer] [id number] 04/29/2027 [id number] / / [id number] Procedures Procedure Name Priority Date/Time Associated Diagnosis [...] RNA NEGATIVE NEGATIVE 11/28/2024 10:[address] [facility] Comment: NEGATIVE RESULTS DO NOT [...] SPECIMEN TYPE NASAL 11/28/2024 9:26 PM CDT [facility] NASAL STRUCTURE / Unknown 11/28/2024 9:26 PM CDT us Ata Smith NP MICROBIOLOGY - GENERAL ORDERAB LES Final Result [facility] [address] [place] [address], * (ABNORMAL) COMPREHENSIVE METABOLIC PANEL (11/28/2024 9:26 PM CDT) GLUCOSE 85 70 - 99 MG/DL 11/28/2024 10:23 PM CDT [facility] BUN 10 7 - 18 MG/DL 11/28/2024 10:23 PM CDT [facility] CREATININE S/P/B 0.67 0.55 - 1.02 MG/DL 11/28/2024 10:23 PM CDT [facility] SODIUM S/P/B 136 136 - 145 MMOL/L 11/28/2024 10:23 PM CDT [facility] POTASSIUM S/P/B 4.8 3.5 - 5.1 MMOL/L 11/28/2024 10:23 PM CDT [facility] CHLORIDE S/P/B 110 97 - 115 MMOL/L 11/28/2024 10:23 PM CDT [facility] CO2 22.2 21 - 32 MMOL/L 11/28/2024 10:23 PM T [facility] CALCIUM S/P/B 8.9 8.5 - 10.1 MG/DL 11/28/2024 10:23 PM T [facility] BILIRUBIN TOTAL S/P/B 0.3 0.2 - 1.2 MG/DL 11/28/2024 10:23 PM T [facility] Comment: THIS ASSAY IS NOT RECOMMENDED FOR PATIENTS UNDERGOING TREATMENT WITH ELTROMBOPAG DUE TO THE POTENTIAL FOR FALSELY ELEVATED RESULTS. TOTAL PROTEIN S/P/B 7.6 6.4 - 8.2 G/DL 11/28/2024 10:23 PM T [facility] ALBUMIN S/P/B 3.7 3.4 - 5.0 G/DL 11/28/2024 10:23 PM [facility] AST 22 15 - 37 U/L 11/28/2024 10:23 PM T [facility] ALT 19 14 - 55 U/L 11/28/2024 10:23 PM T [facility] ALKALINE PHOSPHATASE S/P/B 83 50 - 136 U/L 11/28/2024 10:23 PM [facility] ANION GAP 3.8 2 - 10 MMOL/L 11/28/2024 10:23 PM T [facility] BUN CREATININE RATIO 14.9 6 - 26 11/28/2024 10:23 PM [facility] A/G RATIO 0.9(L) 1.0 - 2.0 RATIO 11/28/2024 10:23 PM [facility] GFR ESTIMATE >90 >90 ML/MIN/1.7 3 M2 11/28/2024 10:23 PM T [facility] Comment: NOTE: eGFR is not calculated [...] Ata Daniel Smith NP LABORATORY Final Result [facility] [address] [place] [address], * (ABNORMAL) CBC W/DIFF AUTOMATED (11/28/2024 9:26 PM CDT) WBC 11.59(H) 4.5 - 11.0 x10'3/uL 11/28/2024 9:55 PM CDT [facility] RBC 4.80 4.20 - 5.40 x10'6/uL 11/28/2024 9:55 PM CDT [facility] HGB 14.3 12.0 - 16.0 G/DL 11/28/2024 9:55 PM CDT [facility] HCT 44.5 38.0 - 48.0 % 11/28/2024 9:55 PM CDT [facility] MCV 92.7 81.0 - 99.0 FL 11/28/2024 9:55 PM CDT [facility] MCH 29.8 27.0 - 31.0 PG 11/28/2024 9:55 PM CDT [facility] MCHC 32.1 32.0 - 36.0 G/DL 11/28/2024 9:55 PM CDT [facility] RDW 12.5 11.5 - 14.5 % 11/28/2024 9:55 PM CDT [facility] PLT 292 130 - 400 x10'3/uL 11/28/2024 9:55 PM CDT [facility] MPV 11.1 9.3 - 12.2 FL 11/28/2024 9:55 PM CDT [facility] DIFFERENTIAL TYPE AUTOMATED DIFFERENTIAL 11/28/2024 9:55 PM CDT [facility] NEUTROPHILS % 61.0 % 11/28/2024 9:55 PM CDT [facility] LYMPHOCYTES % 25.4 % 11/28/2024 9:55 PM CDT [facility] MONOCYTES % 5.1 % 11/28/2024 9:55 PM CDT [facility] EOSINOPHILS 7.1 % 11/28/2024 9:55 PM CDT [facility] BASOPHILS 0.8 % 11/28/2024 9:55 PM CDT [facility] IMMATURE GRANS % 0.6 % 11/29/19 9:55 PM CDT [facility] ABS. NEUTROPHILS 7.08 1.80 - 7.70 x10'3/uL 11/28/2024 9:55 PM CDT [facility] ABS. LYMPHOCYTES 2.94 1.00 - 4.80 x10'3/uL 11/28/2024 9:55 PM CDT [facility] ABS. MONOCYTES 0.59 0.24 - 0.86 x10'3/uL 11/28/2024 9:55 PM CDT [facility] ABS. EOSINOPHILS 0.82(H) 0.04 - 0.36 x10'3/uL 11/28/2024 9:55 PM CDT [facility] ABS. BASOPHILS 0.09(H) 0.01 - 0.08 x10'3/uL 11/28/2024 9:55 PM CDT [facility] ABS. IMMATURE GRANULOCYTES 0.07 0.00 - 0.49 x10'3/uL 11/28/2024 9:55 PM CDT [facility] 11/28/2024 9:26 PM CDT us Ata Smith ELEVATOR CONSTRUCTOR HYDRAULIC LABORATORY Final Result [facility] [address] [place] [address], [place] [phone] * MAGNESIUM (11/28/2024 9:26 PM CDT) MAGNESIUM 1.9 1.8 - 2.4 MG/DL 11/28/2024 10:23 PM CDT [facility] 11/28/2024 9:26 PM CDT Ata Smith ELEVATOR CON[employer] LABORATORY Final Result Performing Organization Address [facility] de Phone Number [facility] [address] [place] [address], [place] [phone] * CT CERV SPINE WO CON (11/28/2024 [...] 8:36 PM Narrative 11/28/2024 8:40 PM [address] [address] EXAMINATION: CT Cervical Spine REPORT DATE: 11/28/2024 [...] normal. Procedure Note Jessica Boo, - 11/28/[address] [address] EXAMINATION: CT Cervical Spine REPORT DATE: 11/28/2024 [...] DO, 11/28/2024 8:36 PM us Ata Smith ELEVATOR CONSTRUCTOR HYDRAULIC CT Final Result from Last 3 Months Insurance [facility] Advance Directives * Full Code (Latest Code Status on File) Date Activated Date Inactivated Comments 12/08/2022 10:53 AM 12/08/2022 2:49 PM Care Teams Serology Teacher Relationship Specialty Start Date End Date None, Provider, PCP - General UNKNOWN PHYSICIAN SPECIALTY 11/28/24
--- OUTSIDE RECORDS SUMMARY | 2025-01-10 00:58 | XMS_ITS | Clinical Summary ---
Author Organization [facility] Address [address] [place] [address] Care Team Providers Care Computer Training Specialist Name Role Phone No, Physician Primary Care Provider [phone] Allergies No known active allergies Social History [...] age to complete this topic Insurance [address] [place] [id number] CHOICE PLUS [facility] CHOICE PLUS Care Teams Computer Training Specialist Relationship Specialty Start Date End Date No, Physician PCP - General 08/15/24
[2025-01-10] MEDS: LACTATED RINGERS 1,000 ML 30 ML IV CONT ×2 (08:58→12:30)
[2025-01-10] MEDS: SCOPOLAMINE 1 MG PATCH 1 PATCH TRANSDERM (09:14)
[2025-01-10 09:57] LABS: BEDSIDEPREGUCG Negative (Negative)
--- NOTE | 2025-01-10 10:06 | WPDANESEPPF ---
Anes - Initial Pre Proc Eval Procedure: Operation Date: 01/10/25 10:30 Proposed Procedures p C5-6 Cervical Disc Arthroplasty - Susan Styles MD Date/Time: 01/10/25 10:06 Surgeon: Susan Styles MD Pre Op Diagnosis: Cerv Myelopathy, Radiculopathy Patient Data Age: 34 Gender: F Height: 1.57 m Weight: 83.4 kg Last Vital Signs Temp 36.6 C 01/10/25 08:30 Pulse 74 01/10/25 08:30 Resp 14 01/10/25 08:30 BP 101/62 01/10/25 08:30 Pulse Ox 99 01/10/25 08:30 O2 Del Method Room Air 01/10/25 08:30 Allergies Allergy/AdvReac Type Severity Reaction Status Date / Time No Known Allergies Allergy Unknown Verified 01/10/25 09:26 Home Medications ?Medication ?Instructions ?Recorded ?Confirmed ?Type tramadol 50 mg tablet 50 mg PO Q6H PRN pain #30 tabs 12/05/24 01/08/25 Rx cyclobenzaprine 5 mg tablet 5 mg PO BID PRN muscle spasm #20 12/06/24 01/08/25 Rx tabs Laboratory Tests 01/10/25 08:30 POC Urine HCG, Qual Negative (Negative) Patient hx anesthesia problems: none Family hx anesthesia problems: none Results Review: All pre-operative results and documents have been reviewed as part of the pre-operative evaluation. [facility] Past Medical History Medical History (Updated 01/10/25 @ 10:07 by Ron Beckett MD) Cervical radiculopathy Smoker Allergies Surgical History Surgical History History of uterine ablation History of Achilles tendon repair Hx of tonsillectomy History of tubal ligation Family History Family History Mother Depression Anxiety Father Asthma Sibling Anxiety Depression Grandparent Thyroid disorder History of cancer Hypertension Heart disease Cerebrovascular accident Social History Social History Smoking packs per day: 0.5 Smoking cigarettes per day: 10.0 Years smoked: 20 Smoking pack-years: 10.00 Smoking status: Current every day smoker Tobacco type: cigarettes Alcohol intake: never Substance use: never Substance use type: does not use Do You Feel Safe in your Home?: Yes Lack of Transportation: No Lack of Food: Sometimes True Current Housing: I Have Housing Concerned About Future Housing: No Difficulty Paying Gas/Electric Bills: Decline to Answer Difficulty Paying for Meds: No Currently Unemployed: No Education: High School Diploma/GED Difficulty w/ Childcare or Family Care: No Living arrangements: with family Gender identity (if verbalized by the patient): Female Spiritual care concerns: No Anes - Eval Final PreProcedure Day of Procedure 01/10/25 10:06 Patient weight: obese Heart: regular rate and rhythm Lungs: clear to auscultation Airway: Mallampati scale class II Neurological: alert and oriented Last oral intake: >/= 8 hours ASA classification: II Emergent: no Anesthetic plan: proceed Anesthesia type and monitoring: general ETT and standard monitoring Results Review: All pre-operative results and documents have been reviewed as part of the pre-operative evaluation. Informed Consent: The patient's anesthetic plan and its attendant risks and benefits were discussed with the patient/family/POA. Questions were solicited and answers provided to the satisfaction of the patient/family/POA.
--- NOTE | 2025-01-10 10:10 | WPDHPUPDATE1 ---
History and Physical Update Update Date/Time: 01/10/25 10:10 History and Physical has been reviewed, including an updated exam of the patient. There are NO changes in the patient's condition. Risks, benefits, and alternatives have been discussed and questions answered. Patient agrees to proceed with procedure.
[2025-01-10] MEDS: ceFAZolin 2 GM in SODIUM CHLORIDE 0.9% IV 50 ML 100 ML IVPB (10:33)
--- NOTE | 2025-01-10 12:37 | P.OP_ITS ---
Procedure Note - Detailed Date of Procedure 01/10/25 Pre-op Diagnosis Cerv Myelopathy, Radiculopathy Post-op Diagnosis Same Procedure Performed 1. Anterior cervical diskectomy C5-6 2. Anterior cervical disc replacement C5-6 with Pro Disc Vivo 3. Use of fluoroscopy 4. Use of microscope for microsurgical dissection Surgeon Susan Styles MD Blast Furnace Supervisor Alberto Anesthesia General Description of Procedure The patient was taken to the operating room and was transferred to the operating table in the supine position. General anesthesia was induced. Pressure points were appropriately padded, and compression devices were placed on the patient's calves. A roll was placed under the neck. The previous surgical site was marked, and the appropriate level was confirmed with the C-arm XR imaging. The patient was prepped and draped in usual sterile fashion. Perioperative antibiotics were given. Time out was performed. Local anesthesia was injected into the planned incision site. Incision was made with a 10-blade scalpel. The subcutaneous tissue was undermined above the platysma. The platysma was opened horizontally with the bovie. Self-retaining retractor was placed. The avascular plane to the spine was dissected sharply. The anterior border of the spine was located and exposed with sharp and blunt dissection. A spinal needle was used to localize the C5-6 disc space just above the cervical plate; this was confirmed on fluoroscopy. The longus coli muscles were elevated bilaterally with a bovie. Once the C5 and C6 vertebral bodies and adjacent intervertebral discs were adequately exposed, self-retaining retractors were placed. Distraction pins were placed in the C5 and C6 vertebral bodies under fluoroscopy to ensure parallel placement with the end plates. The retractor was secured, and the disc space was distracted. A 15-blade scalpel was used to incise the C5-6 disc. A combination of Kerrisons, currettes, and pituitary instruments were used to remove each disc. The microscope was draped and brought into the surgical field. The removal of disc and osteophytes were completed using a high-speed drill, multiple Kerrison punches, and angled currettes. The posterior longitudinal ligament was opened with a currette and kerrison rongeurs until the neuroforamen bilaterally were adequately decompressed. Hemostasis was achieved in the disc space. A trial was placed, and multiple xrays were taken to ensure appropriate size and positioning of the implant. The trial was removed, and a [id number] Pro Disc C Vivo was placed under xray guidance to ensure appropriate positioning. The distraction pins were removed, and the holes were filled with bone wax. The retractors were removed, and final xrays were obtained verifying good positioning. The surgical cavity was copiously irrigated; appropriate hemostasis was verified; and there was no evidence of dural tear/CSF leak. The platysma was closed with interrupted 3-0 Vicryl, followed by interrupted 3-0 Vicryl for the dermis, and 4-0 running subcuticular monocryl for the skin. Dermabond was placed. The patient was extubated, transferred to the bed, and taken to the PACU without incident. Billing codes: 00972, 42050 Estimated Blood Loss 20 Drains No Packing No Pathology None sent Complications None Disposition PACU [facility] Billing Surgery - Charge Forward: Surgery Billing
[2025-01-10] MEDS: fentaNYL CITRATE INJ (*CRX) 100 MCG/2 ML VIAL 25 MCG IV PUSH ×8 (12:40→13:25)
[2025-01-10] MEDS: diazePAM INJ (*CRX) 10 MG/2 ML SYRINGE 5 MG IV PUSH (12:51)
[2025-01-10] MEDS: HYDROmorphone HCL INJ (*CRX) 1 MG/ML SYR IV PUSH ×2 (13:35→14:05)
[2025-01-10] MEDS: oxyCODONE HCL (*CRX) 5 MG TAB IR PO (14:02)
== END 2025-01-10 15:14 | disposition home or self-care (01) ==
PROVIDERS: PCP Emergency Medicine; Visit Provider Neurological Surgery
PROC: 0RQ10ZZ Repair Cervical Vertebral Joint, Open Approach (ICD-10-PCS; CPT 22856; principal; 2025-01-10 10:30)
DX: G95.89 Other specified diseases of spinal cord (principal); M25.78 Osteophyte, vertebrae; F17.210 Nicotine dependence, cigarettes, uncomplicated; E66.9 Obesity, unspecified; Z68.33 Body mass index [BMI] 33.0-33.9, adult; Z79.891 Long term (current) use of opiate analgesic; Z98.890 Other specified postprocedural states; Z98.51 Tubal ligation status; Z80.9 Family history of malignant neoplasm, unspecified; Z82.49 Family history of ischemic heart disease and other diseases of the circulatory system
CPT/HCPCS: 22856; 36415; 71046; 81001; 85610; 85730; 93005; 99199; J0690; A9270; J1100; J1171; J2003; J2250; J2405; J2704; J3010; J3360; J7120

== ENCOUNTER 2025-01-24 10:35 | Outpatient (CLI) | payer OTHER, SELFPAY ==
--- NOTE | ~2025-01-24 | XR_ITS ---
EXAMINATION:[id number] DATE: 01/24/2025 10:50 INDICATION: Status post C5-C6 cervical disc arthroplasty TECHNIQUE: AP, lateral and odontoid views of the cervical spine are provided. COMPARISON: 01/04/2025 FINDINGS: Odontoid is intact. Normal atlantoaxial interval. Interval C5-C6 discectomy and placement of prosthetic disc which is in expected position. There is straightening of the normal cervical lordosis. Vertebral body heights are normal. Remaining disc heights are relatively preserved. Mild cervical uncovert ebral osteoarthritis bilaterally at C3-C4 through C5-C6 and on the right at C6- C7. There is minimal to mild multilevel cervical facet osteoarthritis. Prevertebral soft tissues are normal. Visualized apices of lungs are clear. IMPRESSION: 1. Interval C5-C6 discectomy with placement of a prosthetic disc which is in in expected position. Reviewed, dictated and finalized at location A. 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
== END 2025-01-24 10:36 | disposition home or self-care (01) ==
PROVIDERS: PCP Emergency Medicine; Visit Provider Neurological Surgery
DX: Z98.890 Other specified postprocedural states (principal)
CPT/HCPCS: 72040